=== PATIENT | female | born 1940 | race Caucasian/White ===

== ENCOUNTER 2018-03-23 11:26 | Inpatient (IN) | payer OTHER, MEDICARE ==
[~2018-03-23] VITALS: Ht 154.9 cm; Wt 72.6 kg
[2018-03-23 12:50] LABS: ABSOLUTE BASOPHIL COUNT 0 /CUMM (0.0-0.2); ABSOLUTE EOSINOPHIL COUNT 0 /CUMM (0.0-0.7); ABSOLUTE GRANULOCYTE CT 8.8 /CUMM (1.4-6.5); ABSOLUTE LYMPH COUNT 1.3 /CUMM (1.2-3.4); ABSOLUTE MONOCYTE COUNT 0.5 /CUMM (0.10-0.60); BASOPHIL % 0.1 % (0.0-2.0); EOSINOPHIL % 0.3 % (0-5); GRANULOCYTE % 82.9 % (42.2-75.2); HEMATOCRIT 40.8 % (37-47); MEAN CORPUSCULAR HGB 22.9 PG (27.0-31.0); MEAN CORPUSCULAR HGB CONC 32.2 G/DL (33.0-37.0); MEAN CORPUSCULAR VOLUME 71.1 FL (81.0-99.0); MEAN PLATELET VOLUME 9.6 FL (7.4-10.4); PLATELET COUNT 303 /CUMM (130-400); RBC DISTRIBUTION WIDTH 15.1 % (11.5-14.5); RED BLOOD CELL CT 5.74 /CUMM (4.20-5.40); WHITE BLOOD CELL COUNT 10.6 /CUMM (4.8-10.8)
[2018-03-23] MEDS ORDERED: AMLODIPINE BESYL5 M1 PO (13:18)
[2018-03-23] MEDS ORDERED: ALPRAZOLAM0.5 M4 PO (13:18)
[2018-03-23] MEDS ORDERED: AMOXICILLIN500 M3 PO (13:19)
[2018-03-23] MEDS ORDERED: ATORVASTATIN CA10 M1 PO (13:19)
[2018-03-23] MEDS ORDERED: ASPIRIN EC81 M1 PO (13:20)
[2018-03-23] MEDS ORDERED: PROBIOTIC1 EACH PO (13:20)
[2018-03-23] MEDS ORDERED: CALCIUM600 M3 PO (13:21)
[2018-03-23] MEDS ORDERED: VITAMIN D2000 UNIT PO (13:21)
[2018-03-23] MEDS ORDERED: FOLIC ACID20 MG PO (13:22)
[2018-03-23] MEDS ORDERED: ESTRACE42.5 GM VG (13:22)
[2018-03-23] MEDS ORDERED: LEVOTHYROXINE50 MCG PO (13:23)
[2018-03-23] MEDS ORDERED: GLUCOSAMINE &1 EAC1 PO (13:23)
[2018-03-23] MEDS ORDERED: CLARITIN10 M1 PO (13:23)
[2018-03-23] MEDS ORDERED: MAGNESIUM400 M1 PO (13:23)
[2018-03-23] MEDS ORDERED: METOPROLOL SUC200 M2 PO (13:25)
[2018-03-23] MEDS ORDERED: MULTIVITAMINS1 EAC9 PO (13:25)
[2018-03-23] MEDS ORDERED: BENICAR40 M1 PO (13:26)
[2018-03-23] MEDS ORDERED: MACRODANTIN100 M1 PO (13:26)
[2018-03-23] MEDS ORDERED: TRAMADOL HCL50 M1 PO (13:27)
[2018-03-23] MEDS ORDERED: CVS FISH OIL 11 EAC1 PO (13:27)
[2018-03-23] MEDS ORDERED: OMEPRAZOLE20 M2 PO (13:27)
[2018-03-23] MEDS ORDERED: ESTRADIOL1 EAC8 TOP (13:28)
--- NOTE | 2018-03-23 14:34 | History & Physical ---
Maryanne Solomon 03/23/18 1433: General Information and HPI MD Statement: I have seen and personally examined SEBASTIÁN KENDRICK and documented this H&P. The patient is a 77 year old F who presented with a patient stated chief complaint of [UTI]. Source of Information: patient, Daughter Keya who was on the phone, and daughter Sebastián who was present in room Exam Limitations: no limitations History of Present Illness: Patient is a 69-year-old female with a past medical history significant for recurrent UTIs, hypertension, hyperlipidemia, hypothyroidism, GERD. Patient is presenting with with pain upon urinating, burning sensation while urinating, lower abdominal pain. Patient has been seen at [facility] on multiple occasions for recurrent UTIs. Patient's symptoms began on March 17 which she went through urgent care she was diagnosed with UTI, patient was started on Bactrim for a 5 day course, which the patient completed. Culture results from March 20 were positive for Pseudomonas, at that time patient was contacted by urgent care and patient stated she was feeling better and did not follow-up for change of medications. After initial improvement of symptoms by March 21, patient began to experience worsening of her symptoms today around 3 AM. Patient had cystoscopy with urologist (Dr. Angel Cast) in February, which showed patient had a thin bladder. Patient was referred to OB adjuster and inspector by the urologist and was started on estradiol patch. Patient has previously been on prophylactic medication for UTIs by urologist, but has had UTI while on prophylactic medication. Allergies/Medications Allergies: Coded Allergies: ciprofloxacin (From CIPRO) (MYALGIAS 03/23/18) cortisone (RASH 03/23/18) hydrocodone (ALMOST FAINTED, GI UPSET 03/23/18) methylprednisolone (HIVES 03/23/18) Home Med list Alprazolam 0.5 MG TABLET 1 TAB PO QPM PRN ANXIETY (Reported) Amlodipine Besylate 5 MG TABLET 1 TAB PO DAILY BP (Reported) Amoxicillin 500 MG TABLET 4 CAP PO AD 1 HOUR PRIOR TO DENTAL APPT (Reported) Aspirin (Ecotrin*) 81 MG TABLET.DR 1 TAB PO DAILY HEART/BLOOD (Reported) Atorvastatin Calcium 10 MG TABLET 1 TAB PO DAILY CHOLESTEROL (Reported) Calcium (Elemental-Fr Calcarb) (Calcium) 600 MG CALCIUM (1,500 MG) TABLET 1 TAB PO BID SUPPLEMENT (Reported) Cholecalciferol (Vitamin D3) (Vitamin D) 2,000 UNIT CAPSULE 1 CAP PO DAILY SUPPLEMENT (Reported) Estradiol (Estrace) 0.01 % CREAM.APPL 2 GM VG MONFRI HRT (Reported) Estradiol 0.025 MG/24 HOUR PATCH.TDWK 1 PATCH TOP QWED HRT (Reported) Folic Acid 20 MG CAPSULE 2 CAP PO DAILY SUPPLEMENT (Reported) Gluc 2KCL/Chondr/Sarabjit Hy/Hy AC (Glucosamine & Chondroitin Cap) (Unknown Strength ) CAPSULE (Unknown Dose) PO DAILY SUPPLEMENT (Reported) Lactobacillus Acidophilus (Probiotic) (Unknown Strength) CAPSULE (Unknown Dose ) PO DAILY PROBIOTIC (Reported) Levothyroxine Sodium 50 MCG TABLET 1 TAB PO DAILY THYROID (Reported) Loratadine (Claritin) 10 MG TABLET 1 TAB PO DAILY ALLERGIES (Reported) Magnesium Oxide (Magnesium) 400 MG CAPSULE 1 CAP PO DAILY SUPPLEMENT ( Reported) Metoprolol Succinate 200 MG TAB.ER.24H 1 TAB PO DAILY HEART/BP (Reported) Multiple Vitamin (Multivitamins) 1 EACH TABLET 1 TAB PO DAILY SUPPLEMENT ( Reported) Nitrofurantoin Macrocrystal (Macrodantin) 100 MG CAPSULE 1 CAP PO AD PRN ABX (Reported) Olmesartan Medoxomil (Benicar) 40 MG TABLET 1 TAB PO DAILY BP (Reported) [place]-3 Fatty Acids/Fish Oil (Cvs Fish Oil 1,200 MG Softgel) 360 MG-1,200 MG CAPSULE 1 CAP PO BID SUPPLEMENT (Reported) Omeprazole 20 MG CAPSULE.DR 1 CAP PO DAILY GI (Reported) Tramadol HCl 50 MG TABLET 1 TAB PO Q6P PRN PAIN (Reported) Compliance With Home Meds: GOOD Past History Travel History Traveled to [place] past 21 day No Medical History Cardiovascular: hypertension, hyperlipidemia Gastrointestinal: GERD Endocrine: hypothyroidism Surgical History Surgical History: cystoscopy February 2018 Lithotripsy in 1990s Past Family/Social History Psychosocial History Where do you live? Home Who Do You Live With? spouse (Daughter) Primary Language: Malay ETOH Use: denies use Illicit Drug Use: denies illicit drug use Review of Systems Review of Systems Constitutional: Denies: chills, diaphoresis, fever. Cardiovascular: Denies: chest pain, palpitations. Respiratory: Denies: cough, hemoptysis, short of breath. GI: Reports: abdominal pain. Denies: constipation, diarrhea. Genitourinary: Reports: dysuria, frequency, hesitation, pain. Exam & Diagnostic Data Last 24 Hrs of Vital Signs/I&O Vital Signs Date Time Temp Pulse Resp B/P B/P Pulse O2 O2 Flow FiO2 Mean Ox Delivery Rate 03/24 1357 98.6 66 20 131/64 98 Room Air 03/24 0759 79 139/67 03/24 0759 79 139/67 / 0636 97.7 79 20 139/67 98 Room Air 03/23 2140 98.2 71 18 130/80 98 03/23 1629 98.2 76 18 138/70 98 Room Air Intake & Output 03/24 1600 03/24 0800 03/24 0000 Intake Total 850 160 720 Output Total 450 200 Balance 400 -40 720 Intake, IV 40 Intake, Oral 850 120 720 Number 0 Bowel Movements Output, Urine 450 200 Patient 160 lb Weight Physical Exam General Appearance Alert, Oriented X3, Cooperative Skin No Rashes HEENT Atraumatic, EOMI Neck Supple, No LAD Cardiovascular Regular Rate, Normal S1, Normal S2 Lungs Clear to Auscultation, Normal Air Movement Abdomen Suprapubic tenderness to palpation Extremities No Cyanosis, No Edema, Normal Pulses Assessment/Plan Assessment: Patient is a 77-year-old female with past medical history significant for recurrent UTIs, hypertension, hyperlipidemia, GERD, hypothyroidism. Patient is presenting with onset of symptoms around 3 AM, she she is experiencing suprapubic pain, urinary dysuria and urgency. Urinary culture performed at outside clinic on March 20 positive for Pseudomonas. Problem List: 1. UTI 2. Hypertension 3. Hyperlipidemia 4. Hypothyroidism 5. GERD #Urinary tract infection Culture outside clinic positive for Pseudomonas. Culture in-house today positive for gram-negative rods and enterococcus. Afebrile, normal white blood cell count. Plan- -Start ceftazidime 1000 mg -Consult urology, consult ID #Hypertension plan: Continue Metoprolol 200mg Losartan 50mg Amlodipine 5mg #Hyperlipidemia plan: Continue Lipitor #Hypothyroidism plan: Continue Synthroid 0.05mg #GERD plan: Continue Omeprazole 20mg DVT prophylaxis: Heparin Diet: regular Code: Full code discussed with patient on 03/23/2018, daughter Sebastián present in room As Ranked By This Provider Problem List: 1. UTI (urinary tract infection) Core Measures/Misc (06/03) Acute Coronary Syndrome ACS Diagnosis: No Congestive Heart Failure Congestive Heart Failure Diagnosis No Cerebrovascular Accident CVA/TIA Diagnosis: No VTE (View Protocol) VTE Risk Factors Age>40 No Mechanical VTE Prophylaxis d/t Early Ambulation No VTE Pharm Prophylaxis d/t NA PharmProphylax ordered Comment: Heparin Sepsis (View protocol) Sepsis Present: No If YES complete Sepsis Event Note If YES complete Sepsis Event Note Astrid Zuniga 03/23/18 1526: Core Measures/Misc (06/03) Sepsis (View protocol) If YES complete Sepsis Event Note If YES complete Sepsis Event Note Resident Review Statement Other Findings: Patient is 77-year-old female with past medical history of hypertension, hyperlipidemia, GERD, recurrent UTI, hypothyroidism came in with a chief complaint of burning micturition. Patient states that her symptoms started on , on 03/17, she went to urgent care and after getting the urine culture, she was sent home on Bactrim. On 03/20, she completed her course of Bactrim however felt that her burning micturition, urgency, hesitancy, and lower abdominal pain was getting worse. This morning when patient got up, she said that her burning micturition was worse accompanied by pressure-like abdominal pain, /, nonradiating. Patient states that she has had a history of right-sided kidney stone around 20 years ago, which were treated with lithotripsy, repeat imaging done last July, did not show any stones. 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 Spoke with patient's daughter, Gillian, who is also the POA, she states that patient was once put on prophylactic antibiotics for 30 days, however it was discontinued when she developed UTI while being on antibiotics. Labs and vitals as above Assessment and plan Will monitor the patient on general medicine floor, she was given ceftazidime and gentamicin in ER, will continue her on ceftazidime. The urine culture report from urgent care clinic from 03/20/18, shows that she was growing Pseudomonas, however she is allergic to ciprofloxacin, so she would need IV antibiotics. Will follow-up urine culture, blood culture. We will continue her on ceftaz, monitor CBC tomorrow, vitals every shift, will continue the rest of her home meds, DVT prophylaxis SC heparin, patient is full code Sharita CRAIG,Suzy 03/23/18 1704: Core Measures/Misc (06/03) Sepsis (View protocol) If YES complete Sepsis Event Note If YES complete Sepsis Event Note Attending MD Review Statement Attending Statement Attending MD Statement: examined this patient, discuss w/resident/PA/HUNTING SALES ASSOCIATE, agreed w/resident/PA/HUNTING SALES ASSOCIATE, reviewed EMR data (avail) Attending Assessment/Plan: 77F PMH hypertension, hyperlipidemia, GERD, recurrent UTI, hypothyroidism, placed on Estrogen patch for thin bladder epithelium, presenting with dysuria, burning, and urinary frequency consistent with prior UTI's. Was seen at urgent care and placed on empiric Bactrim, culture returned brenner-sensitive Pseudomonas and patient was advised to come to ER, which she did. No systemic symptoms, denying fever, chills, body aches, loss of appetite, chest pain, SOB, flank pain. Had been on prophylactic antibiotics in the past with no success. No evidence of pyelonephritis or abscess. Patient is allergic to quinolones. 1. Pseudomonal UTI 2. Failure of outpatient treatment Plan - Admit to general medicine - Ceftazidime - Continue home medications - ID and urology consults on Sunday - DVT PPx
--- NOTE | 2018-03-23 15:11 | ED GI/GU/ABDOMINAL COMPLAINT ---
History of Present Illness General Chief Complaint: General Adult Stated Complaint: UTI/PYELONEPHRITIS Source: patient, family, old records Exam Limitations: no limitations Vital Signs & Intake/Output Vital Signs & Intake/Output Vital Signs Date Time Temp Pulse Resp B/P B/P Pulse O2 O2 Flow FiO2 Mean Ox Delivery Rate 03/23 1348 98.2 79 20 181/86 98 Room Air 03/23 1133 97.3 88 20 171/88 97 Room Air Allergies Coded Allergies: ciprofloxacin (From CIPRO) (MYALGIAS 03/23/18) cortisone (RASH 03/23/18) hydrocodone (ALMOST FAINTED, GI UPSET 03/23/18) methylprednisolone (HIVES 03/23/18) Reconcile Medications Alprazolam 0.5 MG TABLET 1 TAB PO QPM PRN ANXIETY (Reported) Amlodipine Besylate 5 MG TABLET 1 TAB PO DAILY BP (Reported) Amoxicillin 500 MG TABLET 4 CAP PO AD 1 HOUR PRIOR TO DENTAL APPT (Reported) Aspirin (Ecotrin*) 81 MG TABLET.DR 1 TAB PO DAILY HEART/BLOOD (Reported) Atorvastatin Calcium 10 MG TABLET 1 TAB PO DAILY CHOLESTEROL (Reported) Calcium (Elemental-Fr Calcarb) (Calcium) 600 MG CALCIUM (1,500 MG) TABLET 1 TAB PO BID SUPPLEMENT (Reported) Cholecalciferol (Vitamin D3) (Vitamin D) 2,000 UNIT CAPSULE 1 CAP PO DAILY SUPPLEMENT (Reported) Estradiol (Estrace) 0.01 % CREAM.APPL 2 GM VG MONFRI HRT (Reported) Estradiol 0.025 MG/24 HOUR PATCH.TDWK 1 PATCH TOP QWED HRT (Reported) Folic Acid 20 MG CAPSULE 2 CAP PO DAILY SUPPLEMENT (Reported) Gluc 2KCL/Chondr/Sarabjit Hy/Hy AC (Glucosamine & Chondroitin Cap) (Unknown Strength ) CAPSULE (Unknown Dose) PO DAILY SUPPLEMENT (Reported) Lactobacillus Acidophilus (Probiotic) (Unknown Strength) CAPSULE (Unknown Dose ) PO DAILY PROBIOTIC (Reported) Levothyroxine Sodium 50 MCG TABLET 1 TAB PO DAILY THYROID (Reported) Loratadine (Claritin) 10 MG TABLET 1 TAB PO DAILY ALLERGIES (Reported) Magnesium Oxide (Magnesium) 400 MG CAPSULE 1 CAP PO DAILY SUPPLEMENT ( Reported) Metoprolol Succinate 200 MG TAB.ER.24H 1 TAB PO DAILY HEART/BP (Reported) Multiple Vitamin (Multivitamins) 1 EACH TABLET 1 TAB PO DAILY SUPPLEMENT ( Reported) Nitrofurantoin Macrocrystal (Macrodantin) 100 MG CAPSULE 1 CAP PO AD PRN ABX (Reported) Olmesartan Medoxomil (Benicar) 40 MG TABLET 1 TAB PO DAILY BP (Reported) [place]-3 Fatty Acids/Fish Oil ([facility]vs Fish Oil 1,200 MG Softgel) 360 MG-1,200 MG CAPSULE 1 CAP PO BID SUPPLEMENT (Reported) Omeprazole 20 MG CAPSULE.DR 1 CAP PO DAILY GI (Reported) Tramadol HCl 50 MG TABLET 1 TAB PO Q6P PRN PAIN (Reported) Triage Note: [facility] FOR IV ANTIBIOTICS FOR BLADDER INFECTION. PT WAS TAKING SULFA FOR INFECTION Triage Nurses Notes Reviewed? yes LMP (ages 10-50): post menopausal ? n Is pt currently ? No Onset: Last week Duration: better, constant, continues in ED Timing: recent history Quality/Severity: burning, severe Location: suprapubic Radiation: no radiation Activities at Onset: rest Prior Abdominal Problems: similar symptoms Past Sexual History: Unobtainable at this time Modifying Factors: Worsens With: urinating. Associated Symptoms: dysuria, urinary frequency HPI: 4 days prior to admission patient complained of urinary frequency and hesitation and burning with urination. She was seen and started on Bactrim. Urine culture was positive for 50 100,000 colony-forming units of pseudomonas aeruginosa. Urinary frequency slightly improved. She denies fever chills nausea vomiting diarrhea chest pain cough shortness breath headache rash bleeding. Past History Travel History Traveled to [place] past 21 day No Medical History Any Pertinent Medical History? see below for history Cardiovascular: hyperlipidemia Gastrointestinal: GERD Endocrine: hypothyroidism Surgical History Surgical History: non-contributory Psychosocial History What is your primary language Bhutanese Tobacco Use: Never used ETOH Use: denies use Illicit Drug Use: denies illicit drug use Family History Hx Contributory? No Review of Systems Review of Systems Constitutional: Reports: no symptoms. EENTM: Reports: no symptoms. Respiratory: Reports: no symptoms. Cardiovascular: Reports: no symptoms. GI: Reports: no symptoms. Genitourinary: Reports: see HPI, dysuria, frequency, hesitation. Musculoskeletal: Reports: no symptoms. Skin: Reports: no symptoms. Neurological/Psychological: Reports: no symptoms. Hematologic/Endocrine: Reports: no symptoms. Immunologic/Allergic: Reports: no symptoms. All Other Systems: Reviewed and Negative Physical Exam Physical Exam General Appearance: well developed/nourished, alert, awake, anxious, mild distress Head: atraumatic, normal appearance Eyes: Bilateral: normal appearance, PERRL, EOMI, normal inspection. Ears, Nose, Throat, Mouth: hearing grossly normal, moist mucous membrane Neck: normal inspection, supple, full range of motion, normal alignment Respiratory: normal breath sounds, chest non-tender, no respiratory distress, quiet respiration, lungs clear Cardiovascular: regular rate/rhythm, normal peripheral pulses, norml femoral pulses equa Peripheral Pulses: 4+ carotid (R), 4+ carotid (L) Gastrointestinal: normal bowel sounds, soft, non-tender, no organomegaly Back: normal inspection, normal range of motion Extremities: normal range of motion, no ligament instability Neurologic/Psych: no motor/sensory deficits, awake, alert, oriented x 3, normal gait, normal mood/affect, rn lab II-XII nml as tested Skin: intact, normal color, warm/dry Core Measures ACS in differential dx? No Sepsis Present: No Sepsis Focused Exam Completed? No Progress Differential Diagnosis: UTI/pyelo Plan of Care: Orders Procedure Date/time Status Regular Diet 03/23 D Active Intake & Output 03/23 1422 Active BLOOD CULTURE 03/23 1421 Active Patient Data 03/23 1409 Active OXYGEN SETUP (GEN) 03/23 1349 Active Saline Lock 03/23 1349 Active Admit to inpatient 03/23 1349 Active Vital Signs 03/23 1349 Active Activity/Ambulation 03/23 1349 Active Code Status 03/23 1349 Active CULTURE,URINE 03/23 1211 Active URINALYSIS 03/23 1211 Complete COMPREHENSIVE METABOLIC PANEL 03/23 1211 Complete CBC WITHOUT DIFFERENTIAL 03/23 1211 Complete Laboratory Tests 03/23/18 1230: Anion Gap 16, Estimated GFR > 60, BUN/Creatinine Ratio 22.9, Glucose 141 H, Calcium 9.8, Total Bilirubin 0.5, AST 39 H, ALT 47, Alkaline Phosphatase 53, Total Protein 8.0, Albumin 4.7, Globulin 3.3, Albumin/Globulin Ratio 1.4, CBC w Diff NO MAN DIFF REQ, RBC 5.74 H, MCV 71.1 L, MCH 22.9 L, MCHC 32.2 L, RDW 15.1 H, MPV 9.6, Gran % 82.9 H, Lymphocytes % 12.0 L, Monocytes % 4.7, Eosinophils % 0.3, Basophils % 0.1, Absolute Granulocytes 8.8 H, Absolute Lymphocytes 1.3, Absolute Monocytes 0.5, Absolute Eosinophils 0, Absolute Basophils 0 03/23/18 1224: Urine Color STRAW, Urine Clarity CLDY H, Urine pH 6.0, Ur Specific [place] 1.010, Urine Protein NEG, Urine Ketones NEG, Urine Nitrite NEG, Urine Bilirubin NEG, Urine Urobilinogen 0.2, Ur Leukocyte Esterase LARGE H, Ur Microscopic SEDIMENT EXAMINED, Urine RBC 1-3, Urine WBC 50-75 H, Ur Epithelial Cells MANY H, Urine Bacteria FEW H, Urine Mucus RARE, Urine Hemoglobin SMALL H, Urine Glucose NEG Microbiology 03/23 1421 BLOOD: Blood Culture - ORD 03/23 1421 BLOOD: Blood Culture - ORD 03/23 1224 URINE ROUT: Urine Culture - RECD Initial ED EKG: none Departure Departure Time of Disposition: 1531 Disposition: HOME OR SELF CARE Condition: Stable Clinical Impression Primary Impression: UTI (urinary tract infection) Secondary Impressions: Pseudomonas aeruginosa infection Referrals: Trey Caballero MD (PCP/Family) Departure Forms: Customer Survey General Discharge Information Admission Note Spoke With: Suzy Sheriff MD Documentation of Exam: Documentation of any treatments & extenuating circumstances including Concerns Regarding Discharge (functional status, medication knowledge or non-compliance, living conditions, etc.) that warrant an admission rather than observation: IV antibiotics follow urine culture medication adjustment urology evaluation continuing care discharge planning
[2018-03-23 16:29] VITALS: BP 138/70
--- NOTE | 2018-03-23 17:08 | Admission Certification ---
Admission Certification Certification Statement - As attending physician, I certify that at the time of - admission, based on clinical presentation, severity of - symptoms, need for further diagnostic testing and - therapeutic interventions, and risk of adverse outcomes - without in-hospital treatment, in my clinical assessment, - this patient requires an acute hospital stay for a minimum - of two nights or longer. I have also considered psychsocial - factors such as support system, advanced age, financial - issues, cognitive issues, and failed out-patient treatments, - past re-admission history, safety of patient, and lack of - compliance as applicable. Specific rationale supporting this admission is: Pseudomonal UTI failing outpatient treatment
[2018-03-23 21:40] VITALS: BP 130/80
[2018-03-24 06:36] VITALS: BP 139/67
[2018-03-24 09:17] LABS: ABSOLUTE BASOPHIL COUNT 0 /CUMM (0.0-0.2); ABSOLUTE EOSINOPHIL COUNT 0.2 /CUMM (0.0-0.7); ABSOLUTE GRANULOCYTE CT 5.2 /CUMM (1.4-6.5); ABSOLUTE LYMPH COUNT 2.2 /CUMM (1.2-3.4); ABSOLUTE MONOCYTE COUNT 0.5 /CUMM (0.10-0.60); BASOPHIL % 0.4 % (0.0-2.0); EOSINOPHIL % 2.5 % (0-5); GRANULOCYTE % 64.1 % (42.2-75.2); HEMATOCRIT 39.8 % (37-47); MEAN CORPUSCULAR HGB 22.8 PG (27.0-31.0); MEAN CORPUSCULAR HGB CONC 31.9 G/DL (33.0-37.0); MEAN CORPUSCULAR VOLUME 71.5 FL (81.0-99.0); MEAN PLATELET VOLUME 9.8 FL (7.4-10.4); PLATELET COUNT 271 /CUMM (130-400); RED BLOOD CELL CT 5.56 /CUMM (4.20-5.40); WHITE BLOOD CELL COUNT 8.1 /CUMM (4.8-10.8)
--- NOTE | 2018-03-24 12:01 | PN- Housestaff ---
SolomonMaryanne 03/24/18 1201: Subjective Follow-up For: UTI Complaints: no complaints Subjective: Patient was seen and examined in sitting chair. Patient surrounded by 2 daughters and son-in-law. Patient reports improved pain upon urination, states she is able to void normally without hesitation or decreased flow. Patient states she was having cramps in the left leg and followed by the right leg. Denies Tingling and numbness, denies fever, night sweats and chills. Review of Systems Constitutional: Denies: chills, diaphoresis, fever. Cardiovascular: Denies: chest pain, palpitations. Respiratory: Denies: cough, short of breath. Gastrointestinal: Denies: abdominal pain, constipation, diarrhea, vomiting. Genitourinary: Denies: discharge, dysuria, frequency. Objective Last 24 Hrs of Vital Signs/I&O Vital Signs Date Time Temp Pulse Resp B/P B/P Pulse O2 O2 Flow FiO2 Mean Ox Delivery Rate 03/24 0759 79 139/67 03/24 0759 79 139/67 03/24 0636 97.7 79 20 139/67 98 Room Air 03/23 2140 98.2 71 18 130/80 98 07/ 1629 98.2 76 18 138/70 98 Room Air 03/23 1537 78 19 181/78 98 Room Air / 1348 98.2 79 20 181/86 98 Room Air Intake & Output 03/24 1600 07/08 0800 07/08 0000 Intake Total 160 720 Output Total 200 Balance -40 720 Intake, IV 40 Intake, Oral 120 720 Number 0 Bowel Movements Output, Urine 200 Patient 160 lb Weight Physical Exam General Appearance: Alert, Oriented X3, Cooperative Skin: No Rashes HEENT: Atraumatic, EOMI, Head tremor Neck: Supple, No LAD Cardiovascular: Regular Rate, Normal S1, Normal S2 Lungs: Clear to Auscultation, Normal Air Movement Abdomen: Normal Bowel Sounds, Soft, Minimal tenderness to palpation at suprapubic area Assessment/Plan Assessment: Patient is a 77-year-old female with past medical history significant for recurrent UTIs, hypertension, hyperlipidemia, GERD, hypothyroidism. Patient is presenting with onset of symptoms around 3 AM, she she is experiencing suprapubic pain, urinary dysuria and urgency. Urinary culture performed at outside clinic on March 20 positive for Pseudomonas. Problem List: 1. UTI 2. Hyperkalemia 3. Hypertension 4. Hyperlipidemia 5. Hypothyroidism 6. GERD #Urinary tract infection Culture outside clinic positive for Pseudomonas. Culture in-house today positive for gram-negative rods and enterococcus. Afebrile, normal white blood cell count. Plan- - Cont. ceftazidime 1000 mg - Start Vancomycin 1000mg IV, pending culture sensitivity - Consult ID - Urology consult placed today #Hyperkalemia Patient was c/o cramps in bilat. lower extremities Plan: -continue to follow K+ -EKG #Hypertension plan: Continue Metoprolol 200mg Losartan 50mg Amlodipine 5mg #Hyperlipidemia plan: Continue Lipitor #Hypothyroidism plan: Continue Synthroid 0.05mg #GERD plan: Continue Omeprazole 20mg DVT prophylaxis: Heparin Diet: regular Code: Full code Problem List: 1. UTI (urinary tract infection) Pain Ratin Pain Location: n/a Pain Goal: Remain pain free Pain Plan: tylenol Tomorrow's Labs & Rationales: cbc, bep Suzy Sheriff MD 03/24/18 1450: Attending MD Review Statement Attending Statement Attending MD Statement: examined this patient, discuss w/resident/PA/POWDER GUARD, agreed w/resident/PA/POWDER GUARD, reviewed EMR data (avail) Attending Assessment/Plan: 77F PMH hypertension, hyperlipidemia, GERD, recurrent UTI, hypothyroidism, placed on Estrogen patch for thin bladder epithelium, presenting with dysuria, burning, and urinary frequency consistent with prior UTI's. Was seen at urgent care and placed on empiric Bactrim, culture returned brenner-sensitive Pseudomonas and patient was advised to come to ER, which she did. No systemic symptoms, denying fever, chills, body aches, loss of appetite, chest pain, SOB, flank pain. Had been on prophylactic antibiotics in the past with no success. No evidence of pyelonephritis or abscess. Patient is allergic to quinolones. Urine growing GNR and Enterococcus 1. Pseudomonal and enterococcal UTI 2. Failure of outpatient treatment Plan - Continue on general medicine - Continue Ceftazidime - Start Vancomycin until culture sensitivities return - Continue home medications - ID and urology consults on Sunday - DVT PPx - Discussed possibility of a PICC and home with IV antibiotics with family. They are willing to do this, and wish for further discussion on Sunday
[2018-03-24 13:57] VITALS: BP 131/64
[2018-03-24 20:58] VITALS: BP 148/83
[2018-03-25 07:01] VITALS: BP 184/89
--- NOTE | 2018-03-25 07:59 | PN- Housestaff ---
See Addendum Subjective Follow-up For: UTI Subjective: Patient seen and examined in chair. Acute events overnight. Afebrile. Patient has no complains of. Patient states she has not experience any pain or burning sensation with urination. In talking patient patient states that in the past her bladder does not completely empty this is been going on for quite some years , that when she urinates her bladder does not feel like it is completely empty, so she tries to relieve herself again she is successful in completely voiding some of the time. Review of Systems Constitutional: Denies: chills, diaphoresis, fever. Cardiovascular: Denies: chest pain. Respiratory: Denies: cough, short of breath. Objective Last 24 Hrs of Vital Signs/I&O Vital Signs Date Time Temp Pulse Resp B/P B/P Pulse O2 O2 Flow FiO2 Mean Ox Delivery Rate 03/25 0701 98.0 28 18 184/89 98 03/24 2058 98.4 66 18 148/83 99 03/24 1357 98.6 66 20 131/64 98 Room Air 03/24 0759 79 139/67 03/24 0759 79 139/67 Intake & Output 03/25 0800 03/25 0000 03/24 1600 Intake Total 230 250 850 Output Total 300 450 Balance -70 250 400 Intake, IV 30 50 Intake, Oral 200 200 850 Output, Urine 300 450 Physical Exam General Appearance: Alert, Oriented X3, Cooperative HEENT: Atraumatic, EOMI Neck: Supple Cardiovascular: Regular Rate, Normal S1, Normal S2 Lungs: Clear to Auscultation, Normal Air Movement Abdomen: Normal Bowel Sounds, Soft, No Tenderness Extremities: No Cyanosis, No Edema, Normal Pulses Assessment/Plan Assessment: Patient is a 77-year-old female with past medical history significant for recurrent UTIs, hypertension, hyperlipidemia, GERD, hypothyroidism. Patient is presenting with onset of symptoms around 3 AM, she she is experiencing suprapubic pain, urinary dysuria and urgency. Urinary culture performed at outside clinic on March 20 positive for Pseudomonas. Problem List: 1. UTI 2. Hypertension 3. Hyperlipidemia 4. Hypothyroidism 5. GERD 6. Hyperkalemia - resolved #Urinary tract infection Culture outside clinic positive for Pseudomonas. Culture in-house today positive for gram-negative rods and enterococcus. Afebrile, normal white blood cell count. Plan- - Bladder scan for post-void residual - Cont. ceftazidime 1000 mg - Start Ampicillin 1000mg - patient has history of Enteroccous sensitive to drug , D/CVancomycin, will reassess after sensitivities and ID input - Urology and ID consulted, awaiting input. #Hyperkalemia Patient was c/o cramps in bilat. lower extremities Plan: -continue to follow K+ -EKG #Hypertension plan: Continue Metoprolol 200mg Losartan 50mg Amlodipine 5mg #Hyperlipidemia plan: Continue Lipitor #Hypothyroidism plan: Continue Synthroid 0.05mg #GERD plan: Continue Omeprazole 20mg DVT PPx: ALPS Diet: Regular Code: Full Code Problem List: 1. UTI (urinary tract infection) Pain Ratin Pain Location: n/a Pain Goal: Remain pain free Pain Plan: n/a Tomorrow's Labs & Rationales: none
--- NOTE | 2018-03-25 14:09 | Cons- Infect Disease ---
General Information and HPI Consulting Request Date of Consult: 03/25/18 Requested By: Jerry Dunham MD Reason for Consult: Recurrent urinary tract infections Source of Information: patient, family History of Present Illness: This is a 77-year-old woman with a history of hypertension, hypothyroidism, GERD and nephrolithiasis, with recurrent urinary tract infections over a number of years, treated in the past with suppressive antibiotics, with a recent cystoscopy revealing a "thin bladder", for which she was begun on an estradiol patch, treated with Bactrim 6 days prior to admission for a recurrent urinary tract infection, with resolution of her symptoms, referred to the emergency room for admission on March 23 because of the recurrence of her symptoms and with the urine culture positive for Pseudomonas. On admission she was afebrile. Laboratory data revealed a white blood cell count of 10.6, BUN/creatinine 16 and 0.7, AST 39. Urinalysis 1-3 RBC/50-75 WBCs. She was given Ceftazidime and Gentamicin in the emergency room. On March 24 her urine culture was found to be positive for gram-positive cocci and gram-negative rods; she was given 1 dose of Vancomycin and continued on Ceftazidime. This morning she was begun on Ampicillin. She has remained afebrile since admission. She notes resolution of her urinary symptoms and offers no complaints at this time. Allergies/Medications Allergies: Coded Allergies: ciprofloxacin (From CIPRO) (MYALGIAS 03/23/18) cortisone (RASH 03/23/18) hydrocodone (ALMOST FAINTED, GI UPSET 03/23/18) methylprednisolone (HIVES 03/23/18) Home Med List: Alprazolam 0.5 MG TABLET 1 TAB PO QPM PRN ANXIETY (Reported) Amlodipine Besylate 5 MG TABLET 1 TAB PO DAILY BP (Reported) Amoxicillin 500 MG TABLET 4 CAP PO AD 1 HOUR PRIOR TO DENTAL APPT (Reported) Aspirin (Ecotrin*) 81 MG TABLET.DR 1 TAB PO DAILY HEART/BLOOD (Reported) Atorvastatin Calcium 10 MG TABLET 1 TAB PO DAILY CHOLESTEROL (Reported) Calcium (Elemental-Fr Calcarb) (Calcium) 600 MG CALCIUM (1,500 MG) TABLET 1 TAB PO BID SUPPLEMENT (Reported) Cholecalciferol (Vitamin D3) (Vitamin D) 2,000 UNIT CAPSULE 1 CAP PO DAILY SUPPLEMENT (Reported) Estradiol (Estrace) 0.01 % CREAM.APPL 2 GM VG MONFRI HRT (Reported) Estradiol 0.025 MG/24 HOUR PATCH.TDWK 1 PATCH TOP QWED HRT (Reported) Folic Acid 20 MG CAPSULE 2 CAP PO DAILY SUPPLEMENT (Reported) Gluc 2KCL/Chondr/Sarabjit Hy/Hy AC (Glucosamine & Chondroitin Cap) (Unknown Strength ) CAPSULE (Unknown Dose) PO DAILY SUPPLEMENT (Reported) Lactobacillus Acidophilus (Probiotic) (Unknown Strength) CAPSULE (Unknown Dose ) PO DAILY PROBIOTIC (Reported) Levothyroxine Sodium 50 MCG TABLET 1 TAB PO DAILY THYROID (Reported) Loratadine (Claritin) 10 MG TABLET 1 TAB PO DAILY ALLERGIES (Reported) Magnesium Oxide (Magnesium) 400 MG CAPSULE 1 CAP PO DAILY SUPPLEMENT ( Reported) Metoprolol Succinate 200 MG TAB.ER.24H 1 TAB PO DAILY HEART/BP (Reported) Multiple Vitamin (Multivitamins) 1 EACH TABLET 1 TAB PO DAILY SUPPLEMENT ( Reported) Nitrofurantoin Macrocrystal (Macrodantin) 100 MG CAPSULE 1 CAP PO AD PRN ABX (Reported) Olmesartan Medoxomil (Benicar) 40 MG TABLET 1 TAB PO DAILY BP (Reported) [place]-3 Fatty Acids/Fish Oil ([facility] Fish Oil 1,200 MG Softgel) 360 MG-1,200 MG CAPSULE 1 CAP PO BID SUPPLEMENT (Reported) Omeprazole 20 MG CAPSULE.DR 1 CAP PO DAILY GI (Reported) Tramadol HCl 50 MG TABLET 1 TAB PO Q6P PRN PAIN (Reported) Past History Travel History Traveled to [place] past 21 day No Medical History Blood Transfusion Hx: No Neurological: NONE EENT: NONE Cardiovascular: hypertension, hyperlipidemia Respiratory: NONE Gastrointestinal: GERD Hepatic: NONE Renal: nephrolithiasis, recurrent UTI's Musculoskeletal: NONE Psychiatric: NONE Endocrine: hypothyroidism Blood Disorders: NONE Cancer(s): NONE 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 Home Who Do You Live With? spouse (Daughter) Services at Home: None Primary Language: Libyan Smoking Status: Never Smoked ETOH Use: denies use Illicit Drug Use: denies illicit drug use Review of Systems Review of Systems Constitutional: Denies: chills, fever. All Other Systems: Reviewed and Negative Exam & Diagnostic Data Last 24 Hrs of Vital Signs/I&O Vital Signs Date Time Temp Pulse Resp B/P B/P Pulse O2 O2 Flow FiO2 Mean Ox Delivery Rate 03/25 802 184/89 03/25 0802 184/89 03/25 0701 98.0 28 18 184/89 98 03/24 2058 98.4 66 18 148/83 99 Intake & Output 03/25 1600 03/25 0800 03/25 0000 Intake Total 230 250 Output Total 300 Balance -70 250 Intake, IV 30 50 Intake, Oral 200 200 Output, Urine 300 Physical Exam Other Physical Findings: She is awake and alert in no acute distress. She is afebrile. Skin reveals no rash. HEENT exam is negative. Neck is supple with no adenopathy. Lungs are clear. Heart regular rhythm with no murmur. Abdomen is soft, nontender with positive bowel sounds. Back no CVA tenderness. Extremities no cyanosis, clubbing or edema. Neuro is without focality. Last 24 Hours of Lab Results: Laboratory Tests 03/24 825 Chemistry Sodium (137 - 145 mmol/L) 138 Potassium (3.5 - 5.1 mmol/L) 4.3 Chloride (98 - 107 mmol/L) 103 Carbon Dioxide (22 - 30 mmol/L) 23 Anion Gap (5 - 16) 12 BUN (7 - 17 mg/dL) 15 Creatinine (0.5 - 1.0 mg/dL) 0.6 Estimated GFR (>60 ml/min) > 60 BUN/Creatinine Ratio (7 - 25 %) 25.0 Hematology CBC w Diff NO MAN DIFF REQ WBC (4.8 - 10.8 /CUMM) 8.1 RBC (4.20 - 5.40 /CUMM) 5.56 H Hgb (12.0 - 16.0 G/DL) 12.7 Hct (37 - 47 %) 39.8 MCV (81.0 - 99.0 FL) 71.5 L MCH (27.0 - 31.0 PG) 22.8 L MCHC (33.0 - 37.0 G/DL) 31.9 L RDW (11.5 - 14.5 %) 15.0 H Plt Count (130 - 400 /CUMM) 271 MPV (7.4 - 10.4 FL) 9.8 Gran % (42.2 - 75.2 %) 64.1 Lymphocytes % (20.5 - 51.1 %) 27.1 Monocytes % (1.7 - 9.3 %) 5.9 Eosinophils % (0 - 5 %) 2.5 Basophils % (0.0 - 2.0 %) 0.4 Absolute Granulocytes (1.4 - 6.5 /CUMM) 5.2 Absolute Lymphocytes (1.2 - 3.4 /CUMM) 2.2 Absolute Monocytes (0.10 - 0.60 /CUMM) 0.5 Absolute Eosinophils (0.0 - 0.7 /CUMM) 0.2 Absolute Basophils (0.0 - 0.2 /CUMM) 0 Last 24 Hours of Antony Results: Blood cultures 2 March 23 negative Urine culture March 23 approximately 50,000 colonies of Pseudomonas resistant to Ciprofloxacin and greater than 100,000 colonies of Enterococci sensitive to Ampicillin Assessment/Plan Assessment/Plan Impression: This is a 77-year-old woman with a history of nephrolithiasis, with recurrent urinary tract infections over a number of years, most recently 1 week prior to admission when she was treated with Bactrim, with resolution of her symptoms, admitted on March 23 with recurrent symptoms and with the report of a positive urine culture for Pseudomonas, found to be afebrile with a normal white count and pyuria and with her urine culture found to be positive for Pseudomonas and Enterococcus. She appears to have a symptomatic lower urinary tract infection, which appears to be responding to antibiotics. The etiology of her recurrent urinary tract infections is unclear. She does have a history of nephrolithiasis and obstruction should be ruled out if she has not had recent imaging. She has been treated in the past with a suppressive course of antibiotics which may be helpful, though this often leads to the emergence of resistance to the antibiotic used. If she has no obstruction then she should only require a 3 day course of antibiotics for her current infection. Suggestion: 1. Urology evaluation 2. CT of the abdomen and pelvis 3. Continue Ampicillin and Ceftazidime pending above Consult Acknowledgment - Thank you for your consult request.
[2018-03-25 14:27] VITALS: BP 173/73
--- NOTE | 2018-03-25 19:50 | CT SCAN REPORT ---
EXAMINATION: CT ABDOMEN AND PELVIS WITHOUT CONTRAST CLINICAL INFORMATION: Recurrent UTI. COMPARISON: CT abdomen and pelvis without the level 2006. TECHNIQUE: Multidetector volumetric imaging was performed from the superior aspect of the liver through the pubic symphysis. Sagittal and coronal reformatted images were obtained on the technologist's workstation. DLP: 318 mGy-cm FINDINGS: LUNG BASES: There is bandlike atelectasis right lower lobe and lingula. The heart size is normal. LIVER, GALLBLADDER, AND BILIARY TREE: The liver is normal in size, shape, and attenuation. No focal hepatic lesion or biliary ductal dilatation is present. The gallbladder is unremarkable with no evidence of radiopaque gallstones, gallbladder wall thickening, or obvious pericholecystic inflammatory changes. PANCREAS: Unremarkable. SPLEEN: Unremarkable. ADRENAL GLANDS: Unremarkable. KIDNEYS AND URETERS: The kidneys are normal in size, shape, and attenuation. No hydronephrosis, hydroureter, or calculi seen. No perinephric stranding. BLADDER: Unremarkable. GASTROINTESTINAL TRACT: There is diffuse sigmoid and rest the colon diverticulosis without diverticulitis or distention. The small bowel loops are normal caliber. No free air or free fluid seen. ABDOMINAL WALL: No significant hernia is appreciated. LYMPH NODES: There is scattered mesenteric lymph nodes best visualized on coronal image 34, series 602 is measured approximately 9 mm and are within normal limits. VASCULAR: There is atherosclerotic calcification of abdominal aorta without aneurysmal dilatation. PELVIC VISCERA: No free air or free fluid seen. No pelvic mass or abnormal lymphadenopathy. OSSEOUS STRUCTURES: There are degenerative disc changes L5-S1 and L2-L3 disc levels with ventral spondylosis. No fracture or lytic process seen. There is a total right hip prosthesis with beam hardening artifact lower pelvis posterior to evaluation. IMPRESSION: Colonic diverticulosis without diverticulitis. No obstruction, free air or free fluid. Mild constipation.
[2018-03-25 22:20] VITALS: BP 180/80
[2018-03-26 06:28] VITALS: BP 160/72
--- NOTE | 2018-03-26 07:25 | PN- Housestaff ---
See Addendum Subjective Follow-up For: UTI Subjective: Patient seen and examined at bedside. Patient has no c/o. 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 States she is experiencing a light headache on ROS. Denies: blurry vision, chest pain, palpitations, SOB, diffculty breathing when lying flat. Review of Systems Constitutional: Denies: chills, diaphoresis, fever. EENTM: Denies: blurred vision. Cardiovascular: Denies: chest pain, palpitations. Respiratory: Denies: cough, short of breath. Genitourinary: Reports: frequency. Denies: dysuria, hematuria, hesitation, pain. Objective Last 24 Hrs of Vital Signs/I&O Vital Signs Date Time Temp Pulse Resp B/P B/P Pulse O2 O2 Flow FiO2 Mean Ox Delivery Rate 03/26 0628 98.2 82 16 160/72 95 Room Air 03/25 2323 72 180/80 03/25 2220 97.5 72 17 180/80 96 Room Air 03/25 1427 98.0 74 20 173/73 98 Room Air 03/25 0802 184/89 03/25 0802 184/89 Intake & Output 03/26 0800 03/26 0000 03/25 1600 Intake Total 330 1920 Output Total Balance 330 1920 Intake, IV 330 120 Intake, Oral 1800 Number 0 0 Bowel Movements Physical Exam General Appearance: Alert, Oriented X3, Cooperative Skin: No Rashes HEENT: Atraumatic, EOMI Cardiovascular: Regular Rate, Normal S1, Normal S2 Lungs: Clear to Auscultation, Normal Air Movement Abdomen: Normal Bowel Sounds, Soft, No Tenderness, No Hepatospenomegaly Extremities: No Cyanosis, No Edema, Normal Pulses Assessment/Plan Assessment: Patient is a 77-year-old female with past medical history significant for recurrent UTIs, hypertension, hyperlipidemia, GERD, hypothyroidism. Patient is presenting with onset of symptoms around 3 AM, she she is experiencing suprapubic pain, urinary dysuria and urgency. Urinary culture performed at outside clinic on March 20 positive for Pseudomonas. Problem List: 1. UTI 2. Hypertension 3. Hyperlipidemia 4. Hypothyroidism 5. GERD 6. Hyperkalemia - resolved #Urinary tract infection Culture outside clinic positive for Pseudomonas. In House cultures positive for Pseudomonas and Enterococcus. Afebrile, normal white blood cell count. Plan- - Cont. ceftazidime 1000 mg, will d/c after recieving afternoon dose, - Continue Ampicillin 1000mg, will d/c tomorrow as per ID recs - Abdomen and [place] CT negative #Hypertension plan: - Continue Metoprolol 200mg - Losartan 50mg #Hyperlipidemia plan: Continue Lipitor #Hypothyroidism plan: Continue Synthroid 0.05mg #GERD plan: Continue Omeprazole 20mg #Hyperkalemia Patient was c/o cramps in bilat. lower extremities Plan: -continue to follow K+ -EKG DVT PPx: ALPS Diet: Regular Code: Full Code Problem List: 1. UTI (urinary tract infection) Pain Ratin Pain Location: n/a Pain Goal: Remain pain free Pain Plan: n/a Tomorrow's Labs & Rationales: none DVT/Prophylaxis: pharmacological
--- NOTE | 2018-03-26 07:42 | Cons- Urology ---
General Information and HPI Consulting Request Date of Consult: 03/26/18 Requested By: Jerry Dunham MD Reason for Consult: UTI: recurrent Source of Information: patient, old records Exam Limitations: no limitations History of Present Illness: Pt well known to me with atrophic vaginitis and frequent UTIs, often asymptomatic: had required 3 months of suppression abx to sterilize urine and recently discontinued. now presents with UTI in ER. Patient is a 69-year-old female with a past medical history significant for recurrent UTIs, hypertension, hyperlipidemia, hypothyroidism, GERD. Patient is presenting with with pain upon urinating, burning sensation while urinating, lower abdominal pain. Patient has been seen at [facility] on multiple occasions for recurrent UTIs. Patient's symptoms began on March 17 which she went through urgent care she was diagnosed with UTI, patient was started on Bactrim for a 5 day course, which the patient completed. Culture results from March 20 were positive for Pseudomonas, at that time patient was contacted by urgent care and patient stated she was feeling better and did not follow-up for change of medications. After initial improvement of symptoms by March 21, patient began to experience worsening of her symptoms today around 3 AM. Patient had cystoscopy with urologist (Dr. Angel Cast) in February, which showed patient had a thin bladder. 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 Patient has previously been on prophylactic medication for UTIs by urologist, but has had UTI while on prophylactic medication. Allergies/Medications Allergies: Coded Allergies: ciprofloxacin (From CIPRO) (MYALGIAS 03/23/18) cortisone (RASH 03/23/18) hydrocodone (ALMOST FAINTED, GI UPSET 03/23/18) methylprednisolone (HIVES 03/23/18) Home Med List: Alprazolam 0.5 MG TABLET 1 TAB PO QPM PRN ANXIETY (Reported) Amlodipine Besylate 5 MG TABLET 1 TAB PO DAILY BP (Reported) Amoxicillin 500 MG TABLET 4 CAP PO AD 1 HOUR PRIOR TO DENTAL APPT (Reported) Aspirin (Ecotrin*) 81 MG TABLET.DR 1 TAB PO DAILY HEART/BLOOD (Reported) Atorvastatin Calcium 10 MG TABLET 1 TAB PO DAILY CHOLESTEROL (Reported) Calcium (Elemental-Fr Calcarb) (Calcium) 600 MG CALCIUM (1,500 MG) TABLET 1 TAB PO BID SUPPLEMENT (Reported) Cholecalciferol (Vitamin D3) (Vitamin D) 2,000 UNIT CAPSULE 1 CAP PO DAILY SUPPLEMENT (Reported) Estradiol (Estrace) 0.01 % CREAM.APPL 2 GM VG MONFRI HRT (Reported) Estradiol 0.025 MG/24 HOUR PATCH.TDWK 1 PATCH TOP QWED HRT (Reported) Folic Acid 20 MG CAPSULE 2 CAP PO DAILY SUPPLEMENT (Reported) Gluc 2KCL/Chondr/Nel Hy/Hy AC (Glucosamine & Chondroitin Cap) (Unknown Strength ) CAPSULE (Unknown Dose) PO DAILY SUPPLEMENT (Reported) Lactobacillus Acidophilus (Probiotic) (Unknown Strength) CAPSULE (Unknown Dose ) PO DAILY PROBIOTIC (Reported) Levothyroxine Sodium 50 MCG TABLET 1 TAB PO DAILY THYROID (Reported) Loratadine (Claritin) 10 MG TABLET 1 TAB PO DAILY ALLERGIES (Reported) Magnesium Oxide (Magnesium) 400 MG CAPSULE 1 CAP PO DAILY SUPPLEMENT ( Reported) Metoprolol Succinate 200 MG TAB.ER.24H 1 TAB PO DAILY HEART/BP (Reported) Multiple Vitamin (Multivitamins) 1 EACH TABLET 1 TAB PO DAILY SUPPLEMENT ( Reported) Nitrofurantoin Macrocrystal (Macrodantin) 100 MG CAPSULE 1 CAP PO AD PRN ABX (Reported) Olmesartan Medoxomil (Benicar) 40 MG TABLET 1 TAB PO DAILY BP (Reported) [place]-3 Fatty Acids/Fish Oil (Cvs Fish Oil 1,200 MG Softgel) 360 MG-1,200 MG CAPSULE 1 CAP PO BID SUPPLEMENT (Reported) Omeprazole 20 MG CAPSULE.DR 1 CAP PO DAILY GI (Reported) Tramadol HCl 50 MG TABLET 1 TAB PO Q6P PRN PAIN (Reported) Current Medications: Current Medications Sig/Fletcher Start time Last Medication Dose Route Stop Time Status Admin Acetaminophen 650 MG .STK-MED ONE 03/25 2231 DC PO 03/25 223 Acetaminophen 650 MG Q8P PRN 03/23 1545 AC 03/25 PO 2232 Alprazolam 0.5 MG QPM PRN 03/23 1545 AC 03/23 PO 03/30 1544 2158 Amlodipine Besylate 10 MG DAILY 03/26 0900 CAN PO Amlodipine Besylate 5 MG ONCE ONE 03/25 2300 DC 03/25 PO 03/25 2301 2323 Amlodipine Besylate 5 MG DAILY 03/23 1536 DC 03/25 PO 0802 Ampicillin 1,000 MG Q6 03/25 1200 AC 03/26 Sodium Chloride 100 ML IV 0537 Ampicillin 1,000 MG Q6H 03/25 0719 DC Sodium Chloride 100 ML IV Aspirin Buffered 81 MG DAILY 03/23 1536 AC 03/25 PO 0802 Atorvastatin Calcium 10 MG DAILY 03/23 1537 AC 03/25 PO 0802 Ceftazidime 1,000 MG Q12H 03/24 0200 AC 03/26 IV 0232 Docusate Sodium 100 MG DAILY NEEDED PRN 03/24 2330 AC 03/25 PO 0108 Heparin Sodium 5,000 UNIT Q8 03/23 2200 AC 03/26 (Porcine) SC 0537 Lactobacillus 1 CAP DAILY 03/24 1815 AC 03/25 Acidophilus PO 0803 Levothyroxine Sodium 0.05 MG DAILY AC 03/23 1538 AC 03/26 PO 0708 Losartan Potassium 50 MG DAILY 03/26 0900 AC PO Metoprolol Succinate 200 MG DAILY 03/24 0900 AC 03/25 PO 0802 Non-Formulary 0 SEE ADMIN CRITERIA 03/23 1545 UNVr Medication ANY Omeprazole 20 MG DAILY 03/23 1540 AC 03/25 PO 0802 Tramadol HCl 50 MG Q6P PRN 03/23 1545 AC PO Past History Medical History Blood Transfusion Hx: No Neurological: NONE EENT: NONE Cardiovascular: hypertension, hyperlipidemia Respiratory: NONE Gastrointestinal: GERD Hepatic: NONE Renal: nephrolithiasis, recurrent UTI's Musculoskeletal: NONE Psychiatric: NONE Endocrine: hypothyroidism Blood Disorders: NONE Cancer(s): NONE TOY PACKER/Reproductive: NONE Surgical History Pertinent Surgical History: hysterectomy, cystoscopy February 2018 Lithotripsy in Psychosocial History Where Do You Live? Home Who Do You Live With? spouse (Daughter) Services at Home: None Primary Language: Lithuanian Smoking Status: Never Smoked ETOH Use: denies use Illicit Drug Use: denies illicit drug use Employment History Employment: Unemployed Retired? yes Review of Systems Review of Systems Constitutional: Reports: malaise, weakness. EENTM: Denies: no symptoms. Cardiovascular: Denies: no symptoms. Respiratory: Denies: no symptoms. GI: Reports: abdominal pain, bloating. Genitourinary: Reports: dysuria. Musculoskeletal: Denies: no symptoms. Skin: Denies: no symptoms. Exam & Diagnostic Data Vital Signs and I&O Vital Signs Date Time Temp Pulse Resp B/P B/P Pulse O2 O2 Flow FiO2 Mean Ox Delivery Rate 03/26 0628 98.2 82 16 160/72 95 Room Air 03/25 2323 72 180/80 03/25 2220 97.5 72 17 180/80 96 Room Air 03/25 1427 98.0 74 20 173/73 98 Room Air 03/25 0802 184/89 03/25 0802 184/89 Intake & Output 03/26 0800 07/10 0000 07/09 1600 / 0800 / 0000 07/08 1600 Intake Total 330 1920 230 250 850 Output Total 300 450 Balance 330 1920 -70 250 400 Intake, IV 330 120 30 50 Intake, Oral 1800 200 200 850 Number 0 0 Bowel Movements Output, Urine 300 450 Physical Exam General Appearance: well developed/nourished, no apparent distress Head: atraumatic Eyes: Bilateral: normal appearance. Neck: normal inspection Respiratory: normal breath sounds Cardiovascular: regular rate/rhythm Gastrointestinal: normal bowel sounds, soft, non-tender Back: no vertebral tenderness Extremities: normal inspection Skin: intact, normal color, warm/dry Imaging Results: PATIENT: SEBASTIÁN KENDRICK PRESENT AGE: 77 PATIENT ACCOUNT NO: [id number] : 39 LOCATION: 2NB ORDERING PHYSICIAN: Maryanne Solomon MD SERVICE DATE: 03/25/18- EXAM TYPE: CAT - CT ABD & PELVIS W/O IV CONTRAS EXAMINATION: CT ABDOMEN AND PELVIS WITHOUT CONTRAST CLINICAL INFORMATION: Recurrent UTI. COMPARISON: CT abdomen and pelvis without the level 2006. TECHNIQUE: Multidetector volumetric imaging was performed from the superior aspect of the liver through the pubic symphysis. Sagittal and coronal reformatted images were obtained on the technologist's workstation. DLP: 318 mGy-cm FINDINGS: LUNG BASES: There is bandlike atelectasis right lower lobe and lingula. The heart size is normal. LIVER, GALLBLADDER, AND BILIARY TREE: The liver is normal in size, shape, and attenuation. No focal hepatic lesion or biliary ductal dilatation is present. The gallbladder is unremarkable with no evidence of radiopaque gallstones, gallbladder wall thickening, or obvious pericholecystic inflammatory changes. PANCREAS: Unremarkable. SPLEEN: Unremarkable. ADRENAL GLANDS: Unremarkable. KIDNEYS AND URETERS: The kidneys are normal in size, shape, and attenuation. No hydronephrosis, hydroureter, or calculi seen. No perinephric stranding. BLADDER: Unremarkable. GASTROINTESTINAL TRACT: There is diffuse sigmoid and rest the colon diverticulosis without diverticulitis or distention. The small bowel loops are normal caliber. No free air or free fluid seen. ABDOMINAL WALL: No significant hernia is appreciated. LYMPH NODES: There is scattered mesenteric lymph nodes best visualized on coronal image 34, series 602 is measured approximately 9 mm and are within normal limits. VASCULAR: There is atherosclerotic calcification of abdominal aorta without aneurysmal dilatation. PELVIC VISCERA: No free air or free fluid seen. No pelvic mass or abnormal lymphadenopathy. OSSEOUS STRUCTURES: There are degenerative disc changes L5-S1 and L2-L3 disc levels with ventral spondylosis. No fracture or lytic process seen. There is a total right hip prosthesis with beam hardening artifact lower pelvis posterior to evaluation. IMPRESSION: Colonic diverticulosis without diverticulitis. No obstruction, free air or free fluid. Mild constipation. DICTATED BY: Ilene CRAIG,Sudarshan DATE/TIME DICTATED:03/25/181939 FILM COATER:BENIGNO DATE/TIME TRANSCRIBED:03/25/181939 CONFIDENTIAL, DO NOT COPY WITHOUT APPROPRIATE AUTHORIZATION. <Electronically signed in Other Vendor System> SIGNED BY: Ielne CRAIG,Sudarshan 03/25/181949 Other Results: Patient : SEBASTIÁN KENDRICK Acct: [id number] DR: Jerry Dunham MD Birthdate: [birth year] Age/Sex: 77/F Unit: [id number] Loc: 2NB 216- [id number] Status : ADM IN SPEC #: [id number] NEL: 03/23/18 STATUS: COMP RECD: 03/23/[address]: Sourav Waller MD SOURCE: URINE ROUT ENTR: 03/23/181212 OTHR DR: Ada CRAIG,Trey Roldan SPDESC: URKedar Aguero DO ( [facility]) ORDERED: URINE CULTURE COMMENT: TRIO Procedure Result > URINE CULTURE Final 03/25/18 Approx. 50,000 colonies per ml of: PSEUDOMONAS AERUGINOSA Greater than 100,000 colonies per ml of: ENTEROCOCCUS P. aerugin Enteroc RX AB RX AB ------ -- ------ -- AMPICILLIN S CEFTAZIDIME S CIPROFLOXACIN R GENTAMICIN S MEROPENEM S NITROFURANTOIN S VANCOMYCIN S 1. PSEUDOMONAS AERUGINOSA RX AB ------ -- CEFTAZIDIME S CIPROFLOXACIN R GENTAMICIN S MEROPENEM S 2. ENTEROCOCCUS RX AB ------ -- AMPICILLIN S NITROFURANTOIN S VANCOMYCIN S Note: Infectious Diseases Society of [place] Guidelines state that asymptomatic bacteriuria is not associated with any increase in morbidity or mortality in most patients and therefore treatment is usually not indicated unless patients are less than five years old, or about to undergo urological procedures. 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 Copies To: Segun CRAIG,Angel Consult Acknowledgment - Thank you for your consult request. Attending MD Review Statement Attending Statement Attending MD Statement: examined this patient, discuss w/resident/PA/WELT TREATER Attending Assessment/Plan: continue estrogen/continue abx per ID.
--- NOTE | 2018-03-26 10:40 | PN- Infect Dx ---
Subjective Subjective: Afebrile without complaints Objective Last 24 Hrs of Vital Signs/I&O Vital Signs Date Time Temp Pulse Resp B/P B/P Pulse O2 O2 Flow FiO2 Mean Ox Delivery Rate 03/26 0628 98.2 82 16 160/72 95 Room Air 03/25 2323 72 180/80 03/25 2220 97.5 72 17 180/80 96 Room Air 03/25 1427 98.0 74 20 173/73 98 Room Air Intake & Output 03/26 1600 03/26 0800 03/26 0000 Intake Total 200 330 Output Total Balance 200 330 Intake, IV 200 330 Number 0 0 Bowel Movements Physical Exam Other Physical Findings: She appears comfortable in no acute distress Lungs are clear Heart regular rhythm with no murmur Abdomen is soft, nontender with positive bowel sounds Back no CVA tenderness Results Last 24 Hours of Lab Results: No labs from today Last 24 Hours of Antony Results: Blood cultures 2 March 23 remain negative Recent Imaging Studies: CT of the abdomen and pelvis March 25 no hydronephrosis, calculi or perinephric stranding Assessment/Plan ID Impression: Stable, with temperatures remaining normal, on Ampicillin Day 2 and Ceftazidime Day 3 of treatment for polymicrobial uncomplicated lower urinary tract infection secondary to Enterococcus and Pseudomonas. The etiology of her recurrent urinary tract infections is felt by Urology to be secondary to atrophic vaginitis. She has been treated with suppressive/prophylactic antibiotics in the past, though it is not clear if this has been effective. Suggestion: 1. Further management with regard to suppressive antibiotics per Urology 2. Discontinue Ceftazidime after this afternoon's dose 3. Continue Ampicillin until the a.m. of March 27
[2018-03-26 14:50] VITALS: BP 134/60
[2018-03-26 20:15] VITALS: BP 180/82
[2018-03-26 23:34] VITALS: BP 130/78
[2018-03-27 06:35] VITALS: BP 164/82
--- NOTE | 2018-03-27 07:02 | PN- Housestaff ---
Subjective Follow-up For: UTI Subjective: Patient seen and examined at the bedside, no acute events overnight. Afebrile. Denies pain with urination and denies hesitations, denies frequency, urgency. Discussed blood pressures were patient patient, patient states she does get nervous, states polo blood pressure is better at home. Denies headaches, blurry vision, chest pain, difficulty breathing while lying down, palpitations, shortness of breath. Review of Systems Constitutional: Denies: chills, diaphoresis, fever. Cardiovascular: Denies: chest pain. Respiratory: Denies: cough, short of breath. Gastrointestinal: Denies: abdominal pain, constipation, diarrhea, changes in stool. Genitourinary: Denies: dysuria, frequency, hematuria, hesitation. Objective Last 24 Hrs of Vital Signs/I&O Vital Signs Date Time Temp Pulse Resp B/P B/P Pulse O2 O2 Flow FiO2 Mean Ox Delivery Rate 03/27 0635 97.5 78 16 164/82 96 03/26 2336 130/78 03/26 2334 130/78 03/26 2015 97.7 69 16 180/82 97 Room Air 03/26 1450 98.0 81 18 134/60 97 Room Air Intake & Output 03/27 0800 03/27 0000 03/26 1600 Intake Total 250 1900 Output Total Balance 250 1900 Intake, IV 220 100 Intake, Oral 30 1800 Number 0 Bowel Movements Physical Exam General Appearance: Alert, Oriented X3, Cooperative Skin: No Rashes HEENT: Atraumatic, EOMI Cardiovascular: Regular Rate, Normal S1, Normal S2 Lungs: Clear to Auscultation, Normal Air Movement Abdomen: Normal Bowel Sounds, Soft, No Tenderness Extremities: No Cyanosis, No Edema, Normal Pulses Assessment/Plan Assessment: Patient is a 77-year-old female with past medical history significant for recurrent UTIs, hypertension, hyperlipidemia, GERD, hypothyroidism. Patient is presenting with onset of symptoms around 3 AM, she she is experiencing suprapubic pain, urinary dysuria and urgency. Urinary culture performed at outside clinic on March 20 positive for Pseudomonas. Problem List: 1. UTI 2. Hypertension 3. Hyperlipidemia 4. Hypothyroidism 5. GERD 6. Hyperkalemia - resolved #Urinary tract infection Culture outside clinic positive for Pseudomonas. In House cultures positive for Pseudomonas and Enterococcus. Afebrile, normal white blood cell count. Plan- - Completed 3 day course of IV Ceftazidime 1000mg and Ampicillin 1000mg - Abdomen and [place] CT negative #Hypertension plan: - Continue Metoprolol 200mg - Losartan 50mg #Hyperlipidemia plan: Continue Lipitor #Hypothyroidism plan: Continue Synthroid 0.05mg #GERD plan: Continue Omeprazole 20mg #Hyperkalemia Patient was c/o cramps in bilat. lower extremities Plan: -continue to follow K+ -EKG DVT PPx: ALPS Diet: Regular Code: Full Code Will discharge patient today. To follow up with [facility] and uro-nurse private duty. specialist. D/c with estrace cream 1gm Qpm itravaginally M-F Problem List: 1. UTI (urinary tract infection) Pain Ratin Pain Location: n/a Pain Goal: Remain pain free Pain Plan: n/a Tomorrow's Labs & Rationales: none
--- NOTE | 2018-03-27 07:34 | Patient Discharge Instructions ---
Discharge Instructions General Discharge Information You were seen/treated for: UTI Watch for these problems: Fever, chest pain, shortness of breath Special Instructions: Please take all medications as directed. Please follow-up with primary care and gynecology. Diet Continue normal diet: Yes Activity Full Activity/No Limits: Yes Acute Coronary Syndrome Inclusion Criteria At DC or during hospital stay patient has or had the following: ACS DIAGNOSIS No Discharge Core Measures Meds if any: Prescribed or Continued at Discharge Meds if any: NOT Prescribed or Continued at Discharge Congestive Heart Failure Inclusion Criteria At DC or during hospital stay patient has or had the following: CHF DIAGNOSIS No Discharge Core Measures Meds if any: Prescribed or Continued at Discharge Meds if any: NOT Prescribed or Continued at Discharge Cerebrovascular accident Inclusion Criteria At DC or during hospital stay patient has or had the following: CVA/TIA Diagnosis No Discharge Core Measures Meds if any: Prescribed or Continued at Discharge Meds if any: NOT Prescribed or Continued at Discharge Venous thromboembolism Inclusion Criteria VTE Diagnosis No VTE Type NONE VTE Confirmed by (Test) NONE Discharge Core Measures - Per Current guidelines, there needs to be overlap - treatment for the first 5 days of Warfarin therapy. - If discharged on Warfarin prior to 5 days of - overlap therapy, the patient will need to be - assessed for post discharge needs including - *Post discharge parental anticoagulation - *Warfarin and/or parental anticoagulation education - *Follow up date to check INR post discharge At least 5 days overlap therapy as Inpatient No Meds if any: Prescribed or Continued at Discharge Note: Overlap Therapy is Warfarin and Anticoagulant Meds if any: NOT Prescribed or Continued at Discharge
[2018-03-27 08:39] VITALS: BP 164/82
--- NOTE | 2018-03-27 14:27 | PN- Infect Dx ---
Subjective Subjective: Afebrile without complaints. Objective Last 24 Hrs of Vital Signs/I&O Vital Signs Date Time Temp Pulse Resp B/P B/P Pulse O2 O2 Flow FiO2 Mean Ox Delivery Rate 03/27 0839 78 164/82 03/27 0838 78 164/82 03/27 0635 97.5 78 16 164/82 96 03/26 2336 130/78 03/26 2334 130/78 03/26 2015 97.7 69 16 180/82 97 Room Air 03/26 1450 98.0 81 18 134/60 97 Room Air Intake & Output 03/27 1600 03/27 0800 03/27 0000 Intake Total 250 Output Total Balance 250 Intake, IV 220 Intake, Oral 30 Physical Exam Other Physical Findings: She appears comfortable in no acute distress Back no CVA tenderness Results Last 24 Hours of Lab Results: No recent labs Last 24 Hours of Antony Results: Blood cultures 2 March 23 remain negative Assessment/Plan ID Impression: Stable, with temperatures remaining normal, on Ampicillin Day 3 and status post 3 days of Ceftazidime for a polymicrobial uncomplicated lower urinary tract infection secondary to Enterococcus and Pseudomonas. Her recurrent urinary tract infections are felt by Urology to be secondary to atrophic vaginitis, and Urology recommendations including increasing the frequency of the Estrace cream and referral to a uro-bread room hand are noted. She has been treated with suppressive/prophylactic antibiotics in the past, though it is not clear if this has been effective, and would defer further management with regard to this to Urology. Suggestion: 1. Discontinue Ampicillin and follow off antibiotics 2. Further management with regard to suppressive antibiotics per Urology
== END 2018-03-27 12:34 | DRG 690 ==
LOC: DELPENDDIS → ERH 11:26 → ERHI 13:49 → 2NB 13:49 → ENRESERV 14:35 → ENTRNSPT 15:35 → EDTRNSPTSTS 15:40 → EDTRNSPT 15:40 → 2NB 15:49 → CMPTRNSPT 15:59 → ENPENDDIS 03-24 12:15 → 2NB 03-25 08:02 → ENPENDDIS 03-27 10:53 → 2NB 03-27 12:34
PROVIDERS: Emergency Medicine; Internal Medicine
DX: N39.0 Urinary tract infection, site not specified (principal); B95.2 Enterococcus as the cause of diseases classified elsewhere; B96.5 Pseudomonas (aeruginosa) (mallei) (pseudomallei) as the cause of diseases classified elsewhere; E03.9 Hypothyroidism, unspecified; E87.5 Hyperkalemia; E78.5 Hyperlipidemia, unspecified; I10 Essential (primary) hypertension; K21.9 Gastro-esophageal reflux disease without esophagitis; Z88.1 Allergy status to other antibiotic agents; Z88.5 Allergy status to narcotic agent; Z88.8 Allergy status to other drugs, medicaments and biological substances; Z90.710 Acquired absence of both cervix and uterus
CPT/HCPCS: 2NBSP; 36592; 74176; 81001; 82436; 87040; 87086; 87147; 93005; 93010; 96365; J0290; J0713; J1580; J1644; J3370; J7040; J7508

== ENCOUNTER 2018-04-07 15:23 | Emergency (ER) | payer OTHER, MEDICARE ==
[~2018-04-07] VITALS: Ht 154.9 cm; Wt 74.8 kg
[~2018-04-07 15:23] MED LIST: ALPRAZOLAM0.5 M4 PO; AMLODIPINE BESYL5 M1 PO; AMOXICILLIN500 M3 PO; ASPIRIN EC81 M1 PO; ATORVASTATIN CA10 M1 PO; BENICAR40 M1 PO; CALCIUM600 M3 PO; CLARITIN10 M1 PO; CVS FISH OIL 11 EAC1 PO; ESTRACE42.5 GM VG; ESTRADIOL1 EAC8 TOP; FOLIC ACID20 MG PO; GLUCOSAMINE &1 EAC1 PO; LEVOTHYROXINE50 MCG PO; MACRODANTIN100 M1 PO; MAGNESIUM400 M1 PO; METOPROLOL SUC200 M2 PO; MULTIVITAMINS1 EAC9 PO; OMEPRAZOLE20 M2 PO; PROBIOTIC1 EACH PO; TRAMADOL HCL50 M1 PO; VITAMIN D2000 UNIT PO
[2018-04-07 16:14] LABS: ABSOLUTE BASOPHIL COUNT 0 /CUMM (0.0-0.2); ABSOLUTE EOSINOPHIL COUNT 0 /CUMM (0.0-0.7); ABSOLUTE GRANULOCYTE CT 6.7 /CUMM (1.4-6.5); ABSOLUTE LYMPH COUNT 1.5 /CUMM (1.2-3.4); ABSOLUTE MONOCYTE COUNT 0.4 /CUMM (0.10-0.60); BASOPHIL % 0.1 % (0.0-2.0); EOSINOPHIL % 0.3 % (0-5); GRANULOCYTE % 77.6 % (42.2-75.2); HEMATOCRIT 40.5 % (37-47); MEAN CORPUSCULAR HGB 22.9 PG (27.0-31.0); MEAN CORPUSCULAR HGB CONC 32.3 G/DL (33.0-37.0); MEAN CORPUSCULAR VOLUME 70.8 FL (81.0-99.0); MEAN PLATELET VOLUME 9.1 FL (7.4-10.4); PLATELET COUNT 274 /CUMM (130-400); RBC DISTRIBUTION WIDTH 15.8 % (11.5-14.5); RED BLOOD CELL CT 5.71 /CUMM (4.20-5.40); WHITE BLOOD CELL COUNT 8.7 /CUMM (4.8-10.8)
--- NOTE | 2018-04-07 16:19 | ED GI/GU/ABDOMINAL COMPLAINT ---
History of Present Illness General Chief Complaint: Female Urogenital Problems Stated Complaint: UTI SYMPTOMS,PAIN/BURNING IN VAGINAL AREA Source: patient, old records Exam Limitations: no limitations Vital Signs & Intake/Output Vital Signs & Intake/Output Vital Signs Date Time Temp Pulse Resp B/P B/P Pulse O2 O2 Flow FiO2 Mean Ox Delivery Rate 04/07 1710 90 140/82 04/07 1540 Room Air 04/07 1529 98.1 94 18 183/81 97 Room Air Allergies Coded Allergies: ciprofloxacin (From CIPRO) (MYALGIAS 03/23/18) cortisone (RASH 03/23/18) hydrocodone (ALMOST FAINTED, GI UPSET 03/23/18) methylprednisolone (HIVES 03/23/18) Triage Note: PT TO ER C/C URINARY URGENCY, FREQUENCY, AND BURNING X 1 DAY. DENIES ABD PAIN. DENIES N/V/D. Triage Nurses Notes Reviewed? yes ? N Is pt currently ? No HPI: 21-year-old female former smoker(quit 3 months back) with no significant past medical history except delivery 3 years back came to ED with chief complaint of abdominal cramps and vaginal bleeding since last night. According to patient he was in her usual state of health until 2 days back when she started to noticed having fatigue and this morning she experienced having lower abdominal pain, diffuse, continuous, nonradiating, no aggravating or relieving factor. Patient also reported having burning micturition that she experienced this morning. Patient is urinating frequently. Patient denied chest pain, palpitation, nausea, vomiting, chills, fever, diarrhea, constipation, lightheadedness, sick contact, and discharge from urethra. Patient was admitted to hospital on March 23 when she was treated for UTI as she was growing Pseudomonas and enterococci in the urine. Patient was treated with IV ceftaz addendum and ampicillin. The discharge patient went to see director translation for found patient having bladder prolapse and she send the patient to urologist. Patient has urology appointment on 15 of April. (Gerard CRAIG,Yasmany) Reconcile Medications Alprazolam 0.5 MG TABLET 1 TAB PO QPM PRN ANXIETY (Reported) Amlodipine Besylate 5 MG TABLET 1 TAB PO DAILY BP (Reported) Ampicillin Trihydrate 500 MG CAPSULE 1 CAP PO TID UTI Aspirin (Ecotrin*) 81 MG TABLET.DR 1 TAB PO DAILY HEART/BLOOD (Reported) Atorvastatin Calcium 10 MG TABLET 1 TAB PO DAILY CHOLESTEROL (Reported) Calcium (Elemental-Fr Calcarb) (Calcium) 600 MG CALCIUM (1,500 MG) TABLET 1 TAB PO BID SUPPLEMENT (Reported) Cholecalciferol (Vitamin D3) (Vitamin D) 2,000 UNIT CAPSULE 1 CAP PO DAILY SUPPLEMENT (Reported) Estradiol (Estrace) 0.01 % CREAM.APPL 1 GM VG MONTHRUFRI HRT (Reported) Estradiol 0.025 MG/24 HOUR PATCH.TDWK 1 PATCH TOP QWED HRT (Reported) Folic Acid 20 MG CAPSULE 2 CAP PO DAILY SUPPLEMENT (Reported) Gluc 2KCL/Chondr/Sarabjit Hy/Hy AC (Glucosamine & Chondroitin Cap) (Unknown Strength ) CAPSULE (Unknown Dose) PO DAILY SUPPLEMENT (Reported) Lactobacillus Acidophilus (Probiotic) (Unknown Strength) CAPSULE (Unknown Dose ) PO DAILY PROBIOTIC (Reported) Levothyroxine Sodium 50 MCG TABLET 1 TAB PO DAILY THYROID (Reported) Loratadine (Claritin) 10 MG TABLET 1 TAB PO DAILY ALLERGIES (Reported) Magnesium Oxide (Magnesium) 400 MG CAPSULE 1 CAP PO DAILY SUPPLEMENT ( Reported) Metoprolol Succinate 200 MG TAB.ER.24H 1 TAB PO DAILY HEART/BP (Reported) Multiple Vitamin (Multivitamins) 1 EACH TABLET 1 TAB PO DAILY SUPPLEMENT ( Reported) Nitrofurantoin Macrocrystal (Macrodantin) 100 MG CAPSULE 1 CAP PO BID UTI Olmesartan Medoxomil (Benicar) 40 MG TABLET 1 TAB PO DAILY BP (Reported) [place]-3 Fatty Acids/Fish Oil ([facility] Fish Oil 1,200 MG Softgel) 360 MG-1,200 MG CAPSULE 1 CAP PO BID SUPPLEMENT (Reported) Omeprazole 20 MG CAPSULE.DR 1 CAP PO DAILY GI (Reported) Tramadol HCl 50 MG TABLET 1 TAB PO Q6P PRN PAIN (Reported) (Wilner CRAIG,Deepak Ramirez) Past History Travel History Traveled to [place] past 21 day No Medical History Neurological: NONE EENT: NONE Cardiovascular: hypertension, hyperlipidemia Respiratory: NONE Gastrointestinal: GERD Hepatic: NONE Renal: nephrolithiasis, recurrent UTI's Musculoskeletal: NONE Psychiatric: NONE Endocrine: hypothyroidism Blood Disorders: NONE Cancer(s): NONE 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 see below for history Psychosocial History ETOH Use: denies use Illicit Drug Use: denies illicit drug use Family History Hx Contributory? No (Deepak Darby MD) Review of Systems Review of Systems Constitutional: Denies: chills, fever, weakness. EENTM: Reports: no symptoms. Respiratory: Denies: cough, short of breath, sputum production, wheezing. Cardiovascular: Denies: chest pain, palpitations, syncope. GI: Reports: abdominal pain. Denies: diarrhea, nausea, vomiting. Genitourinary: Reports: frequency, pain. Musculoskeletal: Reports: no symptoms. Neurological/Psychological: Reports: no symptoms. (Yasmany Gee MD) Review of Systems Hematologic/Endocrine: Reports: no symptoms. Immunologic/Allergic: Reports: no symptoms. All Other Systems: Reviewed and Negative (Deepak Darby MD) Physical Exam Physical Exam General Appearance: well developed/nourished, no apparent distress, alert, awake Head: atraumatic Eyes: Bilateral: normal appearance, PERRL, EOMI. Ears, Nose, Throat, Mouth: hearing grossly normal Neck: normal inspection, supple Respiratory: normal breath sounds Cardiovascular: regular rate/rhythm Gastrointestinal: normal bowel sounds, soft Extremities: normal range of motion (Yasmany Gee MD) Physical Exam Neurologic/Psych: no motor/sensory deficits, awake, alert, oriented x 3, normal gait, normal mood/affect Core Measures ACS in differential dx? No Sepsis Present: No Sepsis Focused Exam Completed? No (Deepak Darby MD) Progress Differential Diagnosis: PID/cervicitis, UTI/pyelo, Atrophic vaginitis Plan of Care: Orders Procedure Date/time Status CBC WITHOUT DIFFERENTIAL 04/07 1549 Complete CULTURE,URINE 04/07 1535 Active URINALYSIS 04/07 1535 Complete Laboratory Tests 04/07/18 1607: CBC w Diff NO MAN DIFF REQ, RBC 5.71 H, MCV 70.8 L, MCH 22.9 L, MCHC 32.3 L, RDW 15.8 H, MPV 9.1, Gran % 77.6 H, Lymphocytes % 16.9 L, Monocytes % 5.1, Eosinophils % 0.3, Basophils % 0.1, Absolute Granulocytes 6.7 H, Absolute Lymphocytes 1.5, Absolute Monocytes 0.4, Absolute Eosinophils 0, Absolute Basophils 0 04/07/18 1537: Urine Color YEL, Urine Clarity HAZY H, Urine pH 6.5, Ur Specific [place] <= 1.005, Urine Protein NEG, Urine Ketones NEG, Urine Nitrite POS H, Urine Bilirubin NEG, Urine Urobilinogen 0.2, Ur Leukocyte Esterase LARGE H, Ur Microscopic SEDIMENT EXAMINED, Urine RBC RARE, Urine WBC > 75 H, Ur Epithelial Cells MOD H, Urine Bacteria MANY H, Urine Hemoglobin TRACE-INTACT, Urine Glucose NEG Microbiology 04/07 1550 URINE ROUT: Urine Culture - CAN Cancelled: SPECIMEN NOT RECEIVED - DUPLICATE TESTING [id number] - SEE 04/07 1537 URINE ROUT: Urine Culture - RECD Initial ED EKG: none Comments: 21-year-old female former smoker(quit 3 months back) with no significant past medical history except delivery 3 years back came to ED with chief complaint of abdominal cramps and vaginal bleeding since last night. We will repeat urinalysis and urine culture and we will reduce WBC count. Patient could have chronic colonization as she didn't develop any fever. Her atrophic vaginitis and prolapse of bladder can explain frequency of urination. Her urinalysis came back positive, we will give her 1 dose of Ceftaz and discharge her on oral ampicillin and Macrobid for 10 days. (Gerard CRAIG,Yasmany) Departure Departure Disposition: HOME OR SELF CARE Condition: Stable Clinical Impression Primary Impression: Recurrent UTI Referrals: Ada CRAIG,Trey Roldan (PCP/Family) Additional Instructions: Please follow up with her primary care physician in one week. please follow up with her director translation in 1 week. Please follow up with your urologist in 1 week. Departure Forms: Customer Survey General Discharge Information Prescriptions: Current Visit Scripts Ampicillin Trihydrate 1 CAP PO TID #30 CAP Nitrofurantoin Macrocrystal (Macrodantin) 1 CAP PO BID #20 CAP (Yasmany Gee MD) Resident Co-Sign Statement Statement: ED Attending supervision documentation- [X] I saw and evaluated the patient. I have also reviewed all the pertinent lab results and diagnostic results. I agree with the findings and the plan of care as documented in the Resident's documentation. [X] I have reviewed the ED Record and agree with the Resident's documentation. [] Additions or exceptions (if any) to the Resident's note and plan are summarized below: [] (Wilner CRAIG,Deepak Ramirez)
[2018-04-07] MEDS ORDERED: MACRODANTIN100 M1 PO (16:44)
[2018-04-07] MEDS ORDERED: AMPICILLIN TRI500 MG PO (16:44)
[2018-04-07 17:10] VITALS: BP 140/82
--- NOTE | 2018-04-22 12:40 | ED GI/GU/ABDOMINAL COMPLAINT ---
History of Present Illness General Chief Complaint: uti symptoms, pain/burning in vaginal a Stated Complaint: CYSTOCELE Source: patient, old records Exam Limitations: no limitations Vital Signs & Intake/Output Vital Signs & Intake/Output Temperature 98.1, pulse 94, respiratory rate 18, blood pressure 183/81, oxygen saturation 97% on room air Reconcile Medications Alprazolam 0.5 MG TABLET 1 TAB PO QPM PRN ANXIETY (Reported) Amlodipine Besylate 5 MG TABLET 1 TAB PO DAILY BP (Reported) Ampicillin Trihydrate 500 MG CAPSULE 1 CAP PO TID UTI Aspirin (Ecotrin*) 81 MG TABLET.DR 1 TAB PO DAILY HEART/BLOOD (Reported) Atorvastatin Calcium 10 MG TABLET 1 TAB PO DAILY CHOLESTEROL (Reported) Calcium (Elemental-Fr Calcarb) (Calcium) 600 MG CALCIUM (1,500 MG) TABLET 1 TAB PO BID SUPPLEMENT (Reported) Cholecalciferol (Vitamin D3) (Vitamin D) 2,000 UNIT CAPSULE 1 CAP PO DAILY SUPPLEMENT (Reported) Estradiol (Estrace) 0.01 % CREAM.APPL 1 GM VG MONTHRUFRI HRT (Reported) Estradiol 0.025 MG/24 HOUR PATCH.TDWK 1 PATCH TOP QWED HRT (Reported) Folic Acid 20 MG CAPSULE 2 CAP PO DAILY SUPPLEMENT (Reported) Gluc 2KCL/Chondr/Sarabjit Hy/Hy AC (Glucosamine & Chondroitin Cap) (Unknown Strength ) CAPSULE (Unknown Dose) PO DAILY SUPPLEMENT (Reported) Lactobacillus Acidophilus (Probiotic) (Unknown Strength) CAPSULE (Unknown Dose ) PO DAILY PROBIOTIC (Reported) Levothyroxine Sodium 50 MCG TABLET 1 TAB PO DAILY THYROID (Reported) Loratadine (Claritin) 10 MG TABLET 1 TAB PO DAILY ALLERGIES (Reported) Magnesium Oxide (Magnesium) 400 MG CAPSULE 1 CAP PO DAILY SUPPLEMENT ( Reported) Metoprolol Succinate 200 MG TAB.ER.24H 1 TAB PO DAILY HEART/BP (Reported) Multiple Vitamin (Multivitamins) 1 EACH TABLET 1 TAB PO DAILY SUPPLEMENT ( Reported) Nitrofurantoin Macrocrystal (Macrodantin) 100 MG CAPSULE 1 CAP PO BID UTI Olmesartan Medoxomil (Benicar) 40 MG TABLET 1 TAB PO DAILY BP (Reported) [place]-3 Fatty Acids/Fish Oil ([facility] Fish Oil 1,200 MG Softgel) 360 MG-1,200 MG CAPSULE 1 CAP PO BID SUPPLEMENT (Reported) Omeprazole 20 MG CAPSULE.DR 1 CAP PO DAILY GI (Reported) Tramadol HCl 50 MG TABLET 1 TAB PO Q6P PRN PAIN (Reported) Triage Note: PT TO ER C/C URINARY URGENCY, FREQUENCY, AND BURNING X 1 DAY. DENIES ABD PAIN. DENIES N/V/D. Triage Nurses Notes Reviewed? yes ? n Is pt currently ? No HPI: 77-year-old female with PMH of hypertension, hyperlipidemia, GERD, nephrolithiasis, recurrent UTIs and hypothyroidism came to ED with chief complain of fatigue, frequency of urination and lower abdominal pain. According to patient he was in her usual state of health until 2 days back when she started to noticed having fatigue and this morning she experienced having lower abdominal pain, diffuse, continuous, nonradiating, no aggravating or relieving factor. Patient also reported having burning micturition that she experienced this morning. Patient is urinating frequently. Patient denied chest pain, palpitation, nausea, vomiting, chills, fever, diarrhea, constipation, lightheadedness, sick contact, and discharge from urethra. Patient was admitted to hospital on March 23 when she was treated for UTI as she was growing Pseudomonas and enterococci in the urine. Patient was treated with IV ceftaz addendum and ampicillin. The discharge patient went to see surgical garment fitter for found patient having bladder prolapse and she send the patient to urologist. Patient has urology appointment on 15 of April. (Yasmany Gee MD) Past History Travel History Traveled to [place] past 21 day No Medical History Any Pertinent Medical History? see below for history Neurological: NONE EENT: NONE Cardiovascular: hypertension, hyperlipidemia Respiratory: NONE Gastrointestinal: GERD Hepatic: NONE Renal: nephrolithiasis, recurrent UTI's Musculoskeletal: NONE Psychiatric: NONE Endocrine: hypothyroidism Blood Disorders: NONE Cancer(s): NONE PSYCH COORDINATOR/Reproductive: NONE History of MRSA: No History of VRE: No History of CDIFF: No Surgical History Surgical History: hysterectomy, cystoscopy February 2018 Lithotripsy in Psychosocial History Who do you live with Patient/Self Services at Home None What is your primary language [place]an Family History Hx Contributory? No (Yasmany Gee MD) Review of Systems Review of Systems Constitutional: Denies: chills, fever. EENTM: Reports: no symptoms. Respiratory: Denies: cough, short of breath, sputum production, wheezing. Cardiovascular: Denies: chest pain, palpitations, syncope. GI: Reports: abdominal pain. Denies: constipation, diarrhea, nausea, vomiting. Genitourinary: Reports: frequency, pain. Musculoskeletal: Reports: no symptoms. Neurological/Psychological: Reports: no symptoms. (Yasmany Gee MD) Physical Exam Physical Exam General Appearance: well developed/nourished, no apparent distress Head: atraumatic, normal appearance Eyes: Bilateral: normal appearance, PERRL, EOMI, normal inspection. Ears, Nose, Throat, Mouth: hearing grossly normal Neck: normal inspection, supple Respiratory: normal breath sounds, chest non-tender Cardiovascular: regular rate/rhythm Gastrointestinal: normal bowel sounds, soft Extremities: normal range of motion Neurologic/Psych: no motor/sensory deficits, awake, alert, oriented x 3 Core Measures ACS in differential dx? No Sepsis Present: No Sepsis Focused Exam Completed? No (Yasmany Gee MD) Progress Differential Diagnosis: PID/cervicitis, UTI/pyelo, Atrophic vaginitis Plan of Care: 77-year-old female with PMH of hypertension, hyperlipidemia, GERD, nephrolithiasis, recurrent UTIs and hypothyroidism came to ED with chief complain of fatigue, frequency of urination and lower abdominal pain. We will repeat urinalysis and urine culture and we will reduce WBC count. Patient could have chronic colonization as she didn't develop any fever. Her atrophic vaginitis and prolapse of bladder can explain frequency of urination. Her urinalysis came back positive, we will give her 1 dose of Ceftaz and discharge her on oral ampicillin and Macrobid for 10 days. Initial ED EKG: none Comments: 77-year-old female with PMH of hypertension, hyperlipidemia, GERD, nephrolithiasis, recurrent UTIs and hypothyroidism came to ED with chief complain of fatigue, frequency of urination and lower abdominal pain. We will repeat urinalysis and urine culture and we will reduce WBC count. Patient could have chronic colonization as she didn't develop any fever. Her atrophic vaginitis and prolapse of bladder can explain frequency of urination. Her urinalysis came back positive, we will give her 1 dose of Ceftaz and discharge her on oral ampicillin and Macrobid for 10 days. (Yasmany Gee MD) Departure Departure Disposition: HOME OR SELF CARE Condition: Stable Clinical Impression Primary Impression: Recurrent UTI Referrals: Ada CRAIG,Trey Roldan (PCP/Family) Additional Instructions: Please follow up with her primary care physician in one week. please follow up with her surgical garment fitter in 1 week. Please follow up with your urologist in 1 week. Comments Ampicillin Trihydrate 1 CAP PO TID #30 CAP Nitrofurantoin Macrocrystal (Macrodantin) 1 CAP PO BID #20 CAP Patient was discharged on these antibiotics and instructed to follow her urologist and surgical garment fitter. Patient was advised to come back if symptoms worsen. (Gerard CRAIG,Jade) Departure Prescriptions: Current Visit Scripts Ampicillin Trihydrate 1 CAP PO TID #30 CAP Nitrofurantoin Macrocrystal (Macrodantin) 1 CAP PO BID #20 CAP Resident Co-Sign Statement Statement: ED Attending supervision documentation- [X] I saw and evaluated the patient. I have also reviewed all the pertinent lab results and diagnostic results. I agree with the findings and the plan of care as documented in the Resident's documentation. [X] I have reviewed the ED Record and agree with the Resident's documentation. [] Additions or exceptions (if any) to the Resident's note and plan are summarized below: [] (Wilner CRAIG,Deepak Ramirez)
== END 2018-04-07 17:09 ==
LOC: ERH 15:23
PROVIDERS: Student in an Organized Health Care Education/Training Program
DX: N39.0 Urinary tract infection, site not specified (principal)
CPT/HCPCS: 81001; 87086; 96374; J0713

== ENCOUNTER 2018-05-20 20:24 | Inpatient (IN) | payer OTHER, MEDICARE ==
[~2018-05-20] VITALS: Ht 154.9 cm; Wt 77.6 kg
[~2018-05-20 20:24] MED LIST changes: +AMPICILLIN TRI500 MG PO; +CEPHALEXIN500 M3 PO; +CIPRO500 M1 PO; +CIPROFLOXACIN250 M1 PO; +COLACE100 M1 PO; +SENNA8.6 M3 PO
[2018-05-20 22:38] LABS: HEMATOCRIT 37.7 % (37-47); MEAN CORPUSCULAR HGB 22.8 PG (27.0-31.0); MEAN CORPUSCULAR HGB CONC 32.2 G/DL (33.0-37.0); MEAN CORPUSCULAR VOLUME 70.8 FL (81.0-99.0); MEAN PLATELET VOLUME 9.3 FL (7.4-10.4); PLATELET COUNT 293 /CUMM (130-400); RBC DISTRIBUTION WIDTH 16.1 % (11.5-14.5); RED BLOOD CELL CT 5.33 /CUMM (4.20-5.40); WHITE BLOOD CELL COUNT 7.7 /CUMM (4.8-10.8)
--- NOTE | 2018-05-20 22:50 | ED GI/GU/ABDOMINAL COMPLAINT ---
History of Present Illness General Chief Complaint: Nausea, Vomiting, Diarrhea Stated Complaint: URINARY BURNING;NAUSEA; DIAHHREA Source: patient, family, old records Exam Limitations: no limitations Vital Signs & Intake/Output Vital Signs & Intake/Output Vital Signs Date Time Temp Pulse Resp B/P B/P Pulse O2 O2 Flow FiO2 Mean Ox Delivery Rate 05/21 0207 97.6 92 20 182/90 97 05/21 0153 Room Air 05/20 2356 98.9 87 18 183/87 96 Room Air 05/20 2034 96.4 99 20 186/97 98 Room Air ED Intake and Output 05/21 0000 05/20 1200 Intake Total Output Total Balance Patient 0 lb Weight Allergies Coded Allergies: cortisone (RASH 03/23/18) hydrocodone (ALMOST FAINTED, GI UPSET 03/23/18) methylprednisolone (HIVES 03/23/18) ciprofloxacin (From CIPRO) (MYALGIAS, STOMACH UPSET 04/30/18) Reconcile Medications Alprazolam 0.5 MG TABLET 1 TAB PO QPM PRN ANXIETY (Reported) Amlodipine Besylate 5 MG TABLET 1 TAB PO DAILY BP (Reported) Aspirin (Ecotrin*) 81 MG TABLET.DR 1 TAB PO DAILY HEART/BLOOD (Reported) Atorvastatin Calcium 10 MG TABLET 1 TAB PO DAILY CHOLESTEROL (Reported) Calcium (Elemental-Fr Calcarb) (Calcium) 600 MG CALCIUM (1,500 MG) TABLET 1 TAB PO BID SUPPLEMENT (Reported) Cholecalciferol (Vitamin D3) (Vitamin D) 2,000 UNIT CAPSULE 1 CAP PO DAILY SUPPLEMENT (Reported) Ciprofloxacin HCl (Cipro) 500 MG TABLET 1 TAB PO BID Urinary Infection Please take one pill tonight and then twice daily for the following days with meals. Docusate Sodium (Colace) 100 MG CAPSULE 1 CAP PO BID PRN CONSTIPATION As needed for constipation Estradiol (Estrace) 0.01 % CREAM.APPL 1 GERBER VG DAILY HRT (Reported) Folic Acid 20 MG CAPSULE 2 CAP PO DAILY SUPPLEMENT (Reported) Gluc 2KCL/Chondr/Sarabjit Hy/Hy AC (Glucosamine & Chondroitin Cap) (Unknown Strength ) CAPSULE (Unknown Dose) PO DAILY SUPPLEMENT (Reported) Lactobacillus Acidophilus (Probiotic) (Unknown Strength) CAPSULE (Unknown Dose ) PO DAILY PROBIOTIC (Reported) Levothyroxine Sodium 50 MCG TABLET 1 TAB PO DAILY THYROID (Reported) Loratadine (Claritin) 10 MG TABLET 1 TAB PO DAILY ALLERGIES (Reported) Magnesium Oxide (Magnesium) 400 MG CAPSULE 1 CAP PO DAILY SUPPLEMENT ( Reported) Metoprolol Succinate 200 MG TAB.ER.24H 1 TAB PO DAILY HEART/BP (Reported) Multiple Vitamin (Multivitamins) 1 EACH TABLET 1 TAB PO DAILY SUPPLEMENT ( Reported) Olmesartan Medoxomil (Benicar) 40 MG TABLET 1 TAB PO DAILY BP (Reported) [place]-3 Fatty Acids/Fish Oil ([facility] Fish Oil 1,200 MG Softgel) 360 MG-1,200 MG CAPSULE 1 CAP PO BID SUPPLEMENT (Reported) Omeprazole 20 MG CAPSULE.DR 1 CAP PO DAILY GI (Reported) Sennosides (Senna) 8.6 MG TABLET 2 TAB PO DAILY PRN CONSTIPATION As needed for constipation. Tramadol HCl 50 MG TABLET 1 TAB PO Q6P PRN PAIN (Reported) Triage Note: PT TO ED C/O BURNING WITH URINATION AND +N/V/D SINCE LAST NIGHT. PMH OF RECURRENT UTI'S. 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 PT C/O ABD BLOATING, POOR APPETITE, CHILLS. IS CURRENTLY TAKING KEFLEX. WAS CHANGED FROM CIPRO A COUPLE OF DAYS AGO. Triage Nurses Notes Reviewed? yes LMP (ages 10-50): post menopausal ? n Is pt currently ? No Onset: Last week Duration: constant, continues in ED, getting worse Timing: recent history Quality/Severity: aching, burning, fullness, moderate Location: suprapubic Radiation: no radiation Activities at Onset: rest Prior Abdominal Problems: similar symptoms Past Sexual History: Unobtainable at this time Modifying Factors: Worsens With: urinating. Associated Symptoms: abdominal pain, dysuria, nausea/vomiting HPI: 2 weeks prior to admission patient reports having bladder suspension surgery. 1 week prior to admission she developed recurrent symptoms of UTI started on Cipro then changed to Keflex. She presents with continued dysuria bloating suprapubic discomfort nausea. She denies fever chills vomiting diarrhea chest pain cough shortness of breath rash bleeding headache. Past History Travel History Traveled to [place] past 21 day No Medical History Any Pertinent Medical History? see below for history Neurological: NONE EENT: NONE Cardiovascular: hypertension, hyperlipidemia Respiratory: NONE Gastrointestinal: GERD Hepatic: NONE Renal: nephrolithiasis, recurrent UTI's vaginal prolapse of bladder, ANJALI Musculoskeletal: NONE Psychiatric: NONE Endocrine: hypothyroidism Blood Disorders: NONE Cancer(s): NONE OIL LEASE BUYER/Reproductive: NONE History of MRSA: No History of VRE: No History of CDIFF: No Surgical History Surgical History: hysterectomy, cystoscopy February 2018 Lithotripsy in HIP REPLACEMENT 2013 BUNYONECTOMY 2014 Psychosocial History Who do you live with Patient/Self Services at Home None What is your primary language Greek Tobacco Use: Never used ETOH Use: denies use Illicit Drug Use: denies illicit drug use Family History Hx Contributory? No Review of Systems Review of Systems Constitutional: Reports: no symptoms. EENTM: Reports: no symptoms. Respiratory: Reports: no symptoms. Cardiovascular: Reports: no symptoms. GI: Reports: see HPI, abdominal pain. Genitourinary: Reports: see HPI, dysuria. Musculoskeletal: Reports: no symptoms. Skin: Reports: no symptoms. Neurological/Psychological: Reports: no symptoms. Hematologic/Endocrine: Reports: no symptoms. Immunologic/Allergic: Reports: no symptoms. All Other Systems: Reviewed and Negative Physical Exam Physical Exam General Appearance: well developed/nourished, alert, awake, anxious, mild distress, obese Head: atraumatic, normal appearance Eyes: Bilateral: normal appearance, PERRL, EOMI, normal inspection. Ears, Nose, Throat, Mouth: hearing grossly normal, moist mucous membrane Neck: normal inspection, supple, full range of motion, normal alignment Respiratory: normal breath sounds, chest non-tender, no respiratory distress, quiet respiration, lungs clear Cardiovascular: regular rate/rhythm, normal peripheral pulses, norml femoral pulses equa Peripheral Pulses: 4+ carotid (R), 4+ carotid (L) Gastrointestinal: normal bowel sounds, soft, no organomegaly, distention, tenderness Back: normal inspection, normal range of motion Extremities: normal range of motion, no ligament instability Neurologic/Psych: no motor/sensory deficits, awake, alert, oriented x 3, normal gait, normal mood/affect, 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 No Sepsis Present: No Sepsis Focused Exam Completed? No Progress Differential Diagnosis: UTI/pyelo Plan of Care: Orders Procedure Date/time Status CBC WITHOUT DIFFERENTIAL 05/22 600 Active BASIC ELECTROLYTES PLUS BUN&CR 05/22 600 Active Regular Diet 05/21 B Active Vital Signs 09/04 0105 Active Teach/Educate 05/21 105 Active Pain Treatment and Response 05/21 105 Active Nutritional Intake, Monitor 05/21 105 Active Isolation 05/21 105 Active Intake & Output 05/21 105 Active Patient Care Conference 05/21 105 Active Activity/Ambulation 05/21 105 Active BLOOD CULTURE 05/20 235 Active Pathway - chart 05/20 234 Active Patient Data 05/20 234 Active BLOOD CULTURE 05/20 234 Active Patient Data 05/20 233 Active OXYGEN SETUP (GEN) 05/20 2330 Active Saline Lock 05/[address] in observation 05/20 2330 Active Vital Signs 05/20 2330 Active Activity/Ambulation 05/20 2330 Active Add-on Test (ER Only) 05/20 2152 Active COMPREHENSIVE METABOLIC PANEL 05/20 2152 Complete CBC WITHOUT DIFFERENTIAL 05/20 2152 Complete CULTURE,URINE 05/20 2038 Active URINALYSIS 05/20 2038 Complete House Staff 05/20 UNK Active VTE Mechanical Prophylaxis 05/20 UNK Active Vital Signs 05/20 UNK Active Intake & Output 05/20 UNK Active Activity/Ambulation 05/20 UNK Complete Current Medications Sig/Fletcher Start time Last Medication Dose Stop Time Status Admin Atorvastatin Calcium 10 MG 1700 05/21 1700 AC (Lipitor) Amlodipine Besylate 5 MG DAILY 05/21 900 AC (Norvasc) Aspirin Buffered 81 MG DAILY 05/21 900 AC (Ecotrin) Calcium 600 MG BID 05/21 900 AC (Calcium Carbonate 600 MG Tab) Cholecalciferol 2,000 IU DAILY 05/21 900 AC (Vitamin D) Enoxaparin Sodium 40 MG DAILY 05/21 900 AC (Lovenox) Folic Acid 1 MG DAILY 05/21 900 AC (Folic Acid) Magnesium Oxide 400 MG DAILY 05/21 900 AC (Mag-Ox) Metoprolol Succinate 200 MG DAILY 05/21 900 AC (Toprol Xl) Omeprazole 20 MG DAILY 05/21 900 AC (Prilosec) Levothyroxine Sodium 0.05 MG DAILY AC 05/21 700 AC (Synthroid) Losartan Potassium 100 MG DAILY 05/21 0200 AC 05/21 (Cozaar) 0214 Alprazolam 0.5 MG QPM PRN 05/21 0130 AC 05/21 (Xanax) 05/28 0129 0159 Tramadol HCl 50 MG Q6 PRN 05/21 013 AC (Ultram) Acetaminophen 650 MG Q6P PRN 05/20 234 AC (Tylenol) Acetaminophen 1,000 MG Q6P PRN 05/20 234 AC (Ofirmev) Sodium Chloride 1,000 ML SEE RATE 05/20 234 AC (Normal Saline 0.9%) 05/22 0624 Laboratory Tests 05/20/183: Anion Gap 11, Estimated GFR > 60, BUN/Creatinine Ratio 22.5, Glucose 122 H, Calcium 10.1, Total Bilirubin 0.5, AST 25, ALT 31, Alkaline Phosphatase 68, Total Protein 8.1, Albumin 4.8, Globulin 3.3, Albumin/Globulin Ratio 1.5, CBC w Diff MAN DIFF ORDERED, RBC 5.33, MCV 70.8 L, MCH 22.8 L, MCHC 32.2 L, RDW 16.1 H, MPV 9.3, Segmented Neutrophils 71, Lymphocytes 23, Monocytes 5, Eosinophils 1, Platelet Estimate ADEQUATE, Anisocytosis 1+, Microcytic Cells 2+ 05/20/182038: Urinalysis LIGHT H, Urine Color STRAW, Urine Clarity CLEAR, Urine pH 6.5, Ur Specific [place] 1.010, Urine Protein NEG, Urine Ketones NEG, Urine Nitrite NEG, Urine Bilirubin NEG, Urine Urobilinogen 0.2, Ur Leukocyte Esterase SMALL H, Ur Microscopic SEDIMENT EXAMINED, Urine RBC 1-3, Urine WBC 3-5 H, Ur Epithelial Cells MOD H, Urine Bacteria RARE H, Urine Hemoglobin TRACE-INTACT, Urine Glucose NEG Microbiology 05/21 015 BLOOD: Blood Culture - RECD 05/21 100 BLOOD: Blood Culture - RECD 05/20 2038 URINE ROUT: Urine Culture - RECD Initial ED EKG: none Departure Departure Time of Disposition: 2300 Disposition: STILL A PATIENT Condition: Stable Clinical Impression Primary Impression: Postoperative urinary retention Secondary Impressions: Urinary tract infection Referrals: Ada CRAIG,Trey Roldan (PCP/Family) Departure Forms: Customer Survey General Discharge Information Admission Note Spoke With: Miguelito Gibbons MD Documentation of Exam: Documentation of any treatments & extenuating circumstances including Concerns Regarding Discharge (functional status, medication knowledge or non-compliance, living conditions, etc.) that warrant an admission rather than observation: IV antibiotics follow cultures neurology evaluation medication adjustment continuing care discharge planning
--- NOTE | 2018-05-20 23:47 | History & Physical ---
Rene Bowen 05/20/18 5140: General Information and [facility] MD Statement: I have seen and personally examined SEBASTIÁN KENDRICK and documented this H&P. The patient is a 77 year old F who presented with a patient stated chief complaint of dysuria. Source of Information: patient, family Exam Limitations: no limitations History of Present Illness: 77-year-old female with a past medical history significant for of recurrent UTIs , HTN, HLD, GERD, Status post cystocele repair with mesh and urethral sling 3 weeks ago (05/01/18). She presents to [place] [facility] ED complaining of dysuria, increased urinary frequency, incomplete voiding, and bloating/discomfort around the bladder. This past year she was admitted to [place] [facility] for similar complaints. In March 2018, she was fitted with a pessary for her bladder prolapse but it was removed the following day as it was causing too much discomfort. She was then put on a Keflex regimen. She was admitted again 04/28/18, for similar symptoms and she was put on a ceftazidime regimen because of a previous urine culture showing Pseudomonas. This time she was fitted with a sling and mesh on 05/01/18 and discharged on ciprofloxacin. However, urine cultures on 05/13/18 showed that E Coli resistant to ciprofloxacin so her regimen was changed to Keflex at the urology outpatient service. Currently she is continuing her Keflex regimen, but she continued to be symptomatic and the day before presentation her symptoms were intolerable and therefore she presents to emergency department today. She endorses a significant amount of bloating, poor appetite, chills, pain in the suprapubic/epigastric area. It does not radiate anywhere, and it is not relieved or worsened by any factors known to the patient. It is reproducible by palpation. She also reports that last night she had 3 watery stools and some nausea. She denies any hematuria. Allergies/Medications Allergies: Coded Allergies: cortisone (RASH 03/23/18) hydrocodone (ALMOST FAINTED, GI UPSET 03/23/18) methylprednisolone (HIVES 03/23/18) ciprofloxacin (From CIPRO) (MYALGIAS, STOMACH UPSET 04/30/18) Observation Initial Note - I have personally examined SEBASTIÁN KENDRICK on 05/20/18 at 2353. The disposition of SEBASTIÁN KENDRICK is uncertain at this time and before a determination can be made, she requires a period of observation for the following reasons dysuria, suprapubic discomfort and pain. Past History Travel History Traveled to [place] past 21 day No Medical History Neurological: NONE EENT: NONE Cardiovascular: hypertension, hyperlipidemia Respiratory: NONE Gastrointestinal: GERD Hepatic: NONE Renal: nephrolithiasis, recurrent UTI's vaginal prolapse of bladder, ANJALI Musculoskeletal: NONE Psychiatric: NONE Endocrine: hypothyroidism Blood Disorders: NONE Cancer(s): NONE LEAD PRODUCER/Reproductive: NONE History of MRSA: No History of VRE: No History of CDIFF: No Surgical History Surgical History: hysterectomy, cystoscopy February 2018 Lithotripsy in HIP REPLACEMENT 2012 BUNYONECTOMY 2014 Past Family/Social History Family History Relations & Conditions if any Relation not specified for: *No pertinent family history Psychosocial History Who Do You Live With? spouse (Daughter) Services at Home: None Primary Language: Wallisian ETOH Use: denies use Illicit Drug Use: denies illicit drug use Functional Ability ADLs Independent: dressing, eating, toileting, bathing. Ambulation: independent IADLs Independent: shopping, housework, finances, food prep, telephone, transportation , medication admin. Review of Systems Review of Systems Constitutional: Reports: see HPI. Exam & Diagnostic Data Last 24 Hrs of Vital Signs/I&O Vital Signs Date Time Temp Pulse Resp B/P B/P Pulse O2 O2 Flow FiO2 Mean Ox Delivery Rate 05/21 0207 97.6 92 20 182/90 97 05/21 0153 Room Air 05/20 2356 98.9 87 18 183/87 96 Room Air 05/20 2034 96.4 99 20 186/97 98 Room Air Intake & Output 05/21 0800 05/21 0000 05/20 1600 Intake Total Output Total Balance Patient 168 lb 0 lb Weight Physical Exam General Appearance Alert, Oriented X3, Cooperative, Mild Distress Skin No Rashes Skin Temp/Moisture Exam: Warm/Dry HEENT Atraumatic, PERRLA, EOMI Neck Supple Cardiovascular Normal S1, Normal S2 Lungs Clear to Auscultation Abdomen Normal Bowel Sounds, Soft, suprapubic tenderness Extremities No Cyanosis, Normal Pulses, BL non pitting edema in Lower Ext Last 24 Hrs of Labs/Antony: Laboratory Tests 05/20/183: Anion Gap 11, Estimated GFR > 60, BUN/Creatinine Ratio 22.5, Glucose 122 H, Calcium 10.1, Total Bilirubin 0.5, AST 25, ALT 31, Alkaline Phosphatase 68, Total Protein 8.1, Albumin 4.8, Globulin 3.3, Albumin/Globulin Ratio 1.5, CBC w Diff MAN DIFF ORDERED, RBC 5.33, MCV 70.8 L, MCH 22.8 L, MCHC 32.2 L, RDW 16.1 H, MPV 9.3, Segmented Neutrophils 71, Lymphocytes 23, Monocytes 5, Eosinophils 1, Platelet Estimate ADEQUATE, Anisocytosis 1+, Microcytic Cells 2+ 05/20/182038: Urinalysis LIGHT H, Urine Color STRAW, Urine Clarity CLEAR, Urine pH 6.5, Ur Specific [place] 1.010, Urine Protein NEG, Urine Ketones NEG, Urine Nitrite NEG, Urine Bilirubin NEG, Urine Urobilinogen 0.2, Ur Leukocyte Esterase SMALL H, Ur Microscopic SEDIMENT EXAMINED, Urine RBC 1-3, Urine WBC 3-5 H, Ur Epithelial Cells MOD H, Urine Bacteria RARE H, Urine Hemoglobin TRACE-INTACT, Urine Glucose NEG Microbiology 05/21 015 BLOOD: Blood Culture - RECD 05/21 100 BLOOD: Blood Culture - RECD 05/20 2038 URINE ROUT: Urine Culture - RECD Assessment/Plan Assessment: She is a 77-year-old female with a past medical history significant for recurrent UTIs, had a recent urological procedure 3 weeks ago requiring placement of a mesh and sling for her prolapsed bladder. Presents to the ED this time with similar complaints to her previous admissions this year including dysuria, increased frequency, incomplete voiding, bloating and suprapubic discomfort. T 96.4, HR 99, RR 20, BP 186/97, 98% Room Air - Vitals appear to be within normal limits. Not meeting SIRS criteria. Her BP is currently uncontrolled, despite her being compliant with home meds. WBC, H/H, Plt - 7.7, 12.2/37.7, 293 - unremarkable Electrolytes wnl BUN/creatinine 122/0.4 - possibly some pre-renal/dehydration. LFTs - wnl UA 3-5 WBC, small leuk est - Not impressive for UTI Due to her history of having recurrent symptomatic UTIs compounded by multiple urological procedures, we will put her on observation 24-48 hrs in general medicine and continue antibiotic therapy while consulting urology and ID. Although at this point there is no evidence of infection, no white count, no fever, clean UA, we will still presume urinary tract infection due to patient's dysuria, chills and urological history. If her symptoms are unrelated to infection, there is some chance they could be due to postoperative complications , for which we will leave urology consultation to determine. Since her urine cultures are growing E. coli sensitive to Keflex, the regimen she is on right now should work if it indeed is infectious. She received 1 g of IV ceftriaxone in the ER. #Recurrent symptomatic UTI #History of urological procedures #History of hyperlipidemia #History of hypertension #History of hypothyroidism -Continue to monitor urine cultures, blood cultures, sensitivities -Monitor urine output -Gentle IV hydration -Consider empiric antibiotic?? -Urology Consult -ID consult -Continue home medications for chronic conditions -TSH levels for hx of hypothyroid -Daily BEP for kidney function DVT PPx Full Code As Ranked By This Provider Problem List: 1. Recurrent UTI Core Measures/Misc (06/03) Acute Coronary Syndrome ACS Diagnosis: No Congestive Heart Failure Congestive Heart Failure Diagnosis No Cerebrovascular Accident CVA/TIA Diagnosis: No VTE (View Protocol) VTE Risk Factors Age>40 No Mechanical VTE Prophylaxis d/t N/A MechProphylax Ordered No VTE Pharm Prophylaxis d/t NA PharmProphylax ordered Sepsis (View protocol) Sepsis Present: No If YES complete Sepsis Event Note If YES complete Sepsis Event Note DiazLester 05/20/18 4310: General Information and HPI Allergies/Medications Home Med list Amlodipine Besylate 5 MG TABLET 1 TAB PO DAILY BP (Reported) Aspirin (Ecotrin*) 81 MG TABLET.DR 1 TAB PO DAILY HEART/BLOOD (Reported) Atorvastatin Calcium 10 MG TABLET 1 TAB PO DAILY CHOLESTEROL (Reported) Calcium (Elemental-Fr Calcarb) (Calcium) 600 MG CALCIUM (1,500 MG) TABLET 1 TAB PO BID SUPPLEMENT (Reported) Cephalexin (Keflex) 500 MG CAPSULE 1 CAP PO BID Infection Cholecalciferol (Vitamin D3) (Vitamin D) 2,000 UNIT CAPSULE 1 CAP PO DAILY SUPPLEMENT (Reported) Estradiol (Estrace) 0.01 % CREAM.APPL 1 GERBER VG DAILY HRT (Reported) Folic Acid 20 MG CAPSULE 2 CAP PO DAILY SUPPLEMENT (Reported) Gluc 2KCL/Chondr/Sarabjit Hy/Hy AC (Glucosamine & Chondroitin Cap) (Unknown Strength ) CAPSULE (Unknown Dose) PO DAILY SUPPLEMENT (Reported) Lactobacillus Acidophilus (Probiotic) (Unknown Strength) CAPSULE (Unknown Dose ) PO DAILY PROBIOTIC (Reported) Levothyroxine Sodium 50 MCG TABLET 1 TAB PO DAILY THYROID (Reported) Loratadine (Claritin) 10 MG TABLET 1 TAB PO DAILY ALLERGIES (Reported) Magnesium Oxide (Magnesium) 400 MG CAPSULE 1 CAP PO DAILY SUPPLEMENT ( Reported) Metoprolol Succinate 200 MG TAB.ER.24H 1 TAB PO DAILY HEART/BP (Reported) Multiple Vitamin (Multivitamins) 1 EACH TABLET 1 TAB PO DAILY SUPPLEMENT ( Reported) Olmesartan Medoxomil (Benicar) 40 MG TABLET 1 TAB PO DAILY BP (Reported) [place]-3 Fatty Acids/Fish Oil ([facility]vs Fish Oil 1,200 MG Softgel) 360 MG-1,200 MG CAPSULE 1 CAP PO BID SUPPLEMENT (Reported) Omeprazole 20 MG CAPSULE.DR 1 CAP PO DAILY GI (Reported) Sennosides (Senna) 8.6 MG TABLET 2 TAB PO DAILY PRN CONSTIPATION As needed for constipation. Core Measures/Misc (06/03) Sepsis (View protocol) If YES complete Sepsis Event Note If YES complete Sepsis Event Note Resident Review Statement Resident Statement: examined this patient, discussed with internet merchant, agreed with internet merchant Other Findings: This is a 77-year-old female with past medical history of recurrent uti now s/p cystocele repair with mesh and urethral sling and cystoscopy (05/01/2018) hypertension, hyperlipidemia, GERD, hypothyroidism,came in with chief complain of dysuria and increased frequency. She was last admitted to [facility] with similar complaint in March 2018 as well as April 2018 and is now status post cystocele repair. More recent past medical history she endorses that she followed up with Dr. Paulino on April 11 for placement of a pessary, however because of considerable discomfort, the pessary was removed the very next day. In the first week of April she started to have frequency, dysuria, was initially started on Keflex 250 mg daily for UTI prophylaxis, however because her symptoms returned, the urine culture was obtain and the antibiotic was now changed to a treatment dose of 500 mg every 8. She returned again on 04/28/2018 with similar symptoms of frequency, dysuria, incomplete voiding, initially she was started on ceftazidime, and she had the cystocele repair with sling placement and mesh placement on 05/01/2018 and she was discharged on by mouth ciprofloxacin 500 twice a day. She was doing fine for a week after this discharge in april, however her symptoms recurred again, she was initially started on ciprofloxacin as outpatient by Dr. Paulino, however urine cultures May 13 grew Escherichia coli resistant to ciprofloxacin and therefore her antibiotics was changed to Keflex. Currently she was on day 5 of Keflex however she continued to have symptoms that worsen since one day prior to presentation therefore she presented again. Her vitals on admission she was afebrile at 96.4, pulse of 99, respiration of 20 , blood pressure 186/97, she was 98% on room air. White count of 7.7, H/H of 12.2/37.7, platelet of 293. Electrolytes within normal limits, BUN/creatinine 122/0.4. Liver function tests within normal limits. UA was essentially negative with 3-5 white blood cells, small leukocyte esterase. On physical exam she was alert oriented 3. HEENT PERRLA CVS S1 and S2 present, systolic murmur. RS bilateral air entry equal, no adventitious sounds. Per abdomen : Tenderness present on deep palpation in the lower abdomen and epigastric area. Bilateral lower extremity, mild edema noted. We will keep her on general medicine floor for 24-hour observation. Problem #1 recurrent UTI like symptoms with no evidence of sepsis/infection * Patient has been having recurrent symptoms of burning, dysuria, pain, she has been treated at least on 3 occasions. * Her most recent treatment was with Keflex, she was taking antibiotics prior to presentation was on day 01/21 with the cultures growing E coli senstivity to keflex. * I am unsure at this point if the symptoms are related to infection versus physical symptoms of prolapse itself. * With no white count,no recent procedure/instrumentation at least 2 weeks prior to today's presentation, clean UA, and no systemic signs or evidence of infection, we will keep her off antibiotics for now. * Continue to monitor vitals, intake and output, urine cultures, blood cultures. * She received 1 g of IV ceftriaxone. * Hold any further antibiotics for now. * ID consult in a.m. if she spikes fever. * Urology consult as Dr. Paulino has been following her. #2 history of hypothyroidism. * Continue levothyroxine 50 g daily. #3 history of hyperlipidemia. * Continue Lipitor 10 mg daily. #4 history of hypertension. * Continue Norvasc 5 mg daily. * Continue metoprolol XL 200 mg daily. * Continue on Mrs. olmesartan 40 mg daily. #5 continue home medication of aspirin, Xanax, calcium carbonate, vitamin D3, Claritin, magnesium oxide and supplements. Patient is allergic to hydrocodone, she gets hives, however she tolerates tramadol fine therefore for severe pain pathway we will do tramadol. full code. Mild/moderate severe pain pathway. Regular diet. DVT prophylaxis with Lovenox. Miguelito Gibbons 05/21/18 0223: Core Measures/Misc (06/03) Acute Coronary Syndrome ACS Diagnosis: No Congestive Heart Failure Congestive Heart Failure Diagnosis No Cerebrovascular Accident CVA/TIA Diagnosis: No VTE (View Protocol) VTE Risk Factors No risk factors No Mechanical VTE Prophylaxis d/t Early Ambulation No VTE Pharm Prophylaxis d/t LowRisk-No Interven Req'd Sepsis (View protocol) If YES complete Sepsis Event Note If YES complete Sepsis Event Note Attending MD Review Statement Attending Statement Attending MD Statement: examined this patient, discuss w/resident/PA/CHILD AND FAMILY SERVICES SPECIALIST, agreed w/resident/PA/CHILD AND FAMILY SERVICES SPECIALIST Attending Assessment/Plan: Addendum by . Patient was seen and examined at bedside today ( ) at .. Reviewed the history physical done by the resident. Reviewed the past medical family, family, social history. ROS: 10 point system reviewed and negative except as described above. agree with physical per residnet note, has some suprapubic tendrness, no cva tenderness. labs reviewed. a/P; #Dysuria: Probable UTI. Patient has a E. coli UTI, was on Keflex until this morning. Currently urine analysis shows less than 5 WBC, serum WBC count is normal. No fever, no systemic signs of sepsis. Patient just received a dose of ceftriaxone in the emergency room. Though symptom galicia she might have a UTI but due to lack of evidence of recurrent infection would hold off on any further antibiotics at this time. Sling and mesh, will get urology to review. If the patient continues to have urinary symptoms are if the urine cultures grows different bacteria consider antibiotics and or ID evaluation. #History of urethral prolapse, cystocele status post surgery. #Hypothyroidism, hypertension-continue the home medications. Reviewed with the resident. Agree with the rest of the plan as per resident's note. Dr.Ravinder Priscila MD. Hospitalist. Pager: [phone], cell: [phone]. Pager: [phone], cell: [phone].
[2018-05-21 02:07] VITALS: BP 182/90
[2018-05-21 06:42] VITALS: BP 158/66
--- NOTE | 2018-05-21 07:05 | PN- Housestaff ---
See Addendum Subjective Follow-up For: Recurrent UTI Subjective: Pt seen and examined this am. She was pleasant, AAOx3, breathing comfortably on room air, pleasant, complaining only of improving dysuria when compared to yesterday. Afebrile. No complains of SOB, N/V, hematuria. Review of Systems Constitutional: Reports: see HPI. Objective Last 24 Hrs of Vital Signs/I&O Vital Signs Date Time Temp Pulse Resp B/P B/P Pulse O2 O2 Flow FiO2 Mean Ox Delivery Rate 05/21 1531 97.8 82 20 140/65 97 Room Air 05/21 0911 80 152/84 05/21 0910 79 152/84 05/21 0910 80 152/84 05/21 0642 98.6 90 20 158/66 96 05/21 0207 97.6 92 20 182/90 97 Room Air 05/21 0207 97.6 92 20 182/90 97 05/21 0153 Room Air 05/20 2356 98.9 87 18 183/87 96 Room Air 05/20 2034 96.4 99 20 186/97 98 Room Air Intake & Output 05/21 1600 05/21 0800 05/21 0000 Intake Total 340 Output Total Balance 340 Intake, Oral 340 Patient 168 lb 0 lb Weight Physical Exam General Appearance: Alert, Oriented X3, Cooperative, No Acute Distress Cardiovascular: Regular Rate, Normal S1, Normal S2, No Murmurs Lungs: Clear to Auscultation Abdomen: Normal Bowel Sounds, Soft, No Tenderness Neurological: Normal Speech Extremities: No Edema Current Medications: Current Medications Sig/Fletcher Start time Last Medication Dose Route Stop Time Status Admin Acetaminophen 650 MG Q6P PRN 05/20 2345 AC PO Acetaminophen 1,000 MG Q6P PRN 05/20 2345 AC IV Alprazolam 0.5 MG QPM PRN 05/21 0130 AC 05/21 PO 05/28 0129 0159 Amlodipine Besylate 5 MG DAILY 05/21 900 AC 05/21 PO 09 Aspirin Buffered 81 MG DAILY 05/21 900 AC 05/21 PO 09 Atorvastatin Calcium 10 MG 1700 05/21 1700 AC 05/21 PO 1612 Calcium 600 MG BID 05/21 900 AC 05/21 PO 09 Ceftriaxone Sodium 1,000 MG DAILY 05/21 1411 AC 05/21 IV 1612 Ceftriaxone Sodium 0 .STK-MED ONE 05/20 2353 DC .ROUTE Ceftriaxone Sodium 1,000 MG ONCE ONE 05/20 2330 DC 05/20 IV 05/20 2331 2356 Cholecalciferol 2,000 IU DAILY 05/21 09 AC 05/21 PO 0910 Enoxaparin Sodium 40 MG DAILY 05/21 0900 AC 05/21 SC 0911 Folic Acid 1 MG DAILY 05/21 09 AC 05/21 PO 0910 Lactobacillus 1 CAP DAILY 05/21 1000 AC 05/21 Acidophilus PO 1048 Levothyroxine Sodium 0.05 MG DAILY AC 05/21 07 AC 05/21 PO 0640 Loratadine 10 MG DAILY 05/21 0921 AC 05/21 PO 1048 Losartan Potassium 100 MG DAILY 05/21 0200 AC 05/21 PO 0911 Magnesium Oxide 400 MG DAILY 05/21 09 AC 05/21 PO 0911 Metoprolol Succinate 200 MG DAILY 05/21 09 AC 05/21 PO 0910 Morphine Sulfate 1 MG Q6-PRN PRN 05/20 2345 DC IV Omeprazole 20 MG DAILY 05/21 900 AC 05/21 PO 0641 Omeprazole 20 MG ONCE ONE 05/21 0130 DC PO 05/21 0131 Ondansetron HCl 4 MG ONCE ONE 05/20 2200 DC 05/20 IV 05/20 2201 223 Ondansetron HCl 0 .STK-MED ONE 05/20 2200 DC .ROUTE Senna 187 MG AT BEDTIME PRN 05/21 0930 AC PO Sodium Chloride 1,000 ML SEE RATE 05/20 2345 AC IV 05/22 06 Tramadol HCl 50 MG Q6 PRN 05/21 0130 AC PO Last 24 Hrs of Lab/Antony Results Last 24 Hrs of Labs/Mics: Laboratory Tests 05/20/182232: Anion Gap 11, Estimated GFR > 60, BUN/Creatinine Ratio 22.5, Glucose 122 H, Calcium 10.1, Total Bilirubin 0.5, AST 25, ALT 31, Alkaline Phosphatase 68, Total Protein 8.1, Albumin 4.8, Globulin 3.3, Albumin/Globulin Ratio 1.5, CBC w Diff MAN DIFF ORDERED, RBC 5.33, MCV 70.8 L, MCH 22.8 L, MCHC 32.2 L, RDW 16.1 H, MPV 9.3, Segmented Neutrophils 71, Lymphocytes 23, Monocytes 5, Eosinophils 1, Platelet Estimate ADEQUATE, Anisocytosis 1+, Microcytic Cells 2+ 05/20/182038: Urinalysis LIGHT H, Urine Color STRAW, Urine Clarity CLEAR, Urine pH 6.5, Ur Specific [place] 1.010, Urine Protein NEG, Urine Ketones NEG, Urine Nitrite NEG, Urine Bilirubin NEG, Urine Urobilinogen 0.2, Ur Leukocyte Esterase SMALL H, Ur Microscopic SEDIMENT EXAMINED, Urine RBC 1-3, Urine WBC 3-5 H, Ur Epithelial Cells MOD H, Urine Bacteria RARE H, Urine Hemoglobin TRACE-INTACT, Urine Glucose NEG Microbiology 05/21 154 BLOOD: Blood Culture - RECD 05/21 100 BLOOD: Blood Culture - RECD 05/20 2038 URINE ROUT: Urine Culture - RES Assessment/Plan Assessment: 77 y/o F with PMH significant for recurrent UTIs, HTN, HLD, GERD, s/p cystocele repair with mesh and urethral sling on 05/[address] Paulino. She presents to [place] ED complaining of dysuria, increased urinary frequency, incomplete voiding, and bloating/discomfort around the bladder. She was admitted to the general medicine floor for further management of: PROBLEM LIST #Recurrent symptomatic UTI #History of hyperlipidemia #History of hypertension #History of hypothyroidism #Recurrent symptomatic UTI Patient has a recurring history of dysuria 2/2 her cystocele. She did have repair on the 05/01. Noted prior Ucx growing pseudomonas and E. coli that were treated to completion; she has been compliant with her antibiotics but still c/o symptoms consistent of UTIs. We will obtain ID consult due to recurrent UTIs and follow up with Dr. Paulino for further recommendations. She is afebrile, with no leukocytosis. UA not incredibly impressive for present infection. -Started ceftriaxone 1g qD -F/u Ucx -ID following -F/u with Urology's recommendation #History of hyperlipidemia / #History of hypertension /#History of hypothyroidism We have continued her home dosages of: metoprolol XL, levothyroxine, ASA, amlodipine, atorvastatin. FULL CODE Reg diet DVT PPX lovenox. Problem List: 1. UTI (urinary tract infection) Pain Ratin Pain Location: N/a Pain Goal: Remain pain free Pain Plan: As indicated Tomorrow's Labs & Rationales: BEP, cbc
--- NOTE | 2018-05-21 10:39 | Cons- Infect Disease ---
General Information and HPI Consulting Request Date of Consult: 05/21/18 Requested By: Miguelito Gibbons MD Reason for Consult: UTI Source of Information: primary team Exam Limitations: no limitations History of Present Illness: 77-year-old female with a past medical history significant for of recurrent UTIs , HTN, HLD, GERD, s/p cystocele repair with mesh and urethral sling 3 weeks ago (05/01/18), presented to [place] ED complaining of dysuria, increased urinary frequency, incomplete voiding, and bloating/discomfort around the bladder on 05/20; received one dose iv CTX; currently better. This past year she was admitted to [facility] for similar complaints. In March 2018, she was fitted with a pessary for her bladder prolapse but it was removed the following day as it was causing too much discomfort. She was admitted again 04/28, for similar symptoms and she was treated w/ iv ceftazidime, as UC grew Pseudomonas. This time she was fitted with a sling and mesh on 05/01/18 and discharged on ciprofloxacin. However, urine cultures on 05/13/18 showed that E Coli resistant to ciprofloxacin so her regimen was changed to Keflex at the urology outpatient service. Currently she is continuing her Keflex regimen, but she continued to be symptomatic and the day before presentation her symptoms were intolerable and therefore she presents to emergency department today. She endorses a significant amount of bloating, poor appetite, chills, pain in the suprapubic/epigastric area. She also reports that last night she had 3 watery stools and some nausea. She denies any hematuria. Allergies/Medications Allergies: Coded Allergies: cortisone (RASH 03/23/18) hydrocodone (ALMOST FAINTED, GI UPSET 03/23/18) methylprednisolone (HIVES 03/23/18) ciprofloxacin (From CIPRO) (MYALGIAS, STOMACH UPSET 04/30/18) Home Med List: Alprazolam 0.5 MG TABLET 1 TAB PO QPM PRN ANXIETY (Reported) Amlodipine Besylate 5 MG TABLET 1 TAB PO DAILY BP (Reported) Aspirin (Ecotrin*) 81 MG TABLET.DR 1 TAB PO DAILY HEART/BLOOD (Reported) Atorvastatin Calcium 10 MG TABLET 1 TAB PO DAILY CHOLESTEROL (Reported) Calcium (Elemental-Fr Calcarb) (Calcium) 600 MG CALCIUM (1,500 MG) TABLET 1 TAB PO BID SUPPLEMENT (Reported) Cholecalciferol (Vitamin D3) (Vitamin D) 2,000 UNIT CAPSULE 1 CAP PO DAILY SUPPLEMENT (Reported) Ciprofloxacin HCl (Cipro) 500 MG TABLET 1 TAB PO BID Urinary Infection Please take one pill tonight and then twice daily for the following days with meals. Docusate Sodium (Colace) 100 MG CAPSULE 1 CAP PO BID PRN CONSTIPATION As needed for constipation Estradiol (Estrace) 0.01 % CREAM.APPL 1 GERBER VG DAILY HRT (Reported) Folic Acid 20 MG CAPSULE 2 CAP PO DAILY SUPPLEMENT (Reported) Gluc 2KCL/Chondr/Nel Hy/Hy AC (Glucosamine & Chondroitin Cap) (Unknown Strength ) CAPSULE (Unknown Dose) PO DAILY SUPPLEMENT (Reported) Lactobacillus Acidophilus (Probiotic) (Unknown Strength) CAPSULE (Unknown Dose ) PO DAILY PROBIOTIC (Reported) Levothyroxine Sodium 50 MCG TABLET 1 TAB PO DAILY THYROID (Reported) Loratadine (Claritin) 10 MG TABLET 1 TAB PO DAILY ALLERGIES (Reported) Magnesium Oxide (Magnesium) 400 MG CAPSULE 1 CAP PO DAILY SUPPLEMENT ( Reported) Metoprolol Succinate 200 MG TAB.ER.24H 1 TAB PO DAILY HEART/BP (Reported) Multiple Vitamin (Multivitamins) 1 EACH TABLET 1 TAB PO DAILY SUPPLEMENT ( Reported) Olmesartan Medoxomil (Benicar) 40 MG TABLET 1 TAB PO DAILY BP (Reported) [place]-3 Fatty Acids/Fish Oil (Cvs Fish Oil 1,200 MG Softgel) 360 MG-1,200 MG CAPSULE 1 CAP PO BID SUPPLEMENT (Reported) Omeprazole 20 MG CAPSULE.DR 1 CAP PO DAILY GI (Reported) Sennosides (Senna) 8.6 MG TABLET 2 TAB PO DAILY PRN CONSTIPATION As needed for constipation. Tramadol HCl 50 MG TABLET 1 TAB PO Q6P PRN PAIN (Reported) Current Medications: Current Medications Sig/Fletcher Start time Last Medication Dose Route Stop Time Status Admin Acetaminophen 650 MG Q6P PRN 05/20 2345 AC PO Acetaminophen 1,000 MG Q6P PRN 05/20 2345 AC IV Alprazolam 0.5 MG QPM PRN 05/21 0130 AC 05/21 PO 05/28 0129 0159 Amlodipine Besylate 5 MG DAILY 05/21 900 AC 05/21 PO 09 Aspirin Buffered 81 MG DAILY 05/21 09 AC 05/21 PO 0911 Atorvastatin Calcium 10 MG 1700 05/21 1700 AC PO Calcium 600 MG BID 05/21 0900 AC 05/21 PO 0911 Ceftriaxone Sodium 0 .STK-MED ONE 05/20 2353 DC .ROUTE Ceftriaxone Sodium 1,000 MG ONCE ONE 05/20 2330 DC 05/20 IV 05/20 2331 2356 Cholecalciferol 2,000 IU DAILY 05/21 0900 AC 05/21 PO 0910 Enoxaparin Sodium 40 MG DAILY 05/21 0900 AC 05/21 SC 0911 Folic Acid 1 MG DAILY 05/21 0900 AC 05/21 PO 0910 Lactobacillus 1 CAP DAILY 05/21 1000 AC Acidophilus PO Levothyroxine Sodium 0.05 MG DAILY AC 05/21 0700 AC 05/21 PO 0640 Loratadine 10 MG DAILY 05/21 0921 AC PO Losartan Potassium 100 MG DAILY 05/21 0200 AC 05/21 PO 0911 Magnesium Oxide 400 MG DAILY 05/21 0900 AC 05/21 PO 0911 Metoprolol Succinate 200 MG DAILY 05/21 0900 AC 05/21 PO 0910 Morphine Sulfate 1 MG Q6-PRN PRN 05/20 2345 DC IV Omeprazole 20 MG DAILY 05/21 09 AC 05/21 PO 0641 Omeprazole 20 MG ONCE ONE 05/21 0130 DC PO 05/21 0131 Ondansetron HCl 4 MG ONCE ONE 05/20 2200 DC 05/20 IV 05/20 220 2236 Ondansetron HCl 0 .STK-MED ONE 05/20 220 DC .ROUTE Senna 187 MG AT BEDTIME PRN 05/21 0930 AC PO Sodium Chloride 1,000 ML SEE RATE 05/20 2345 AC IV 05/22 0624 Tramadol HCl 50 MG Q6 PRN 05/21 0130 AC PO Past History Travel History Traveled to [place] past 21 day No Medical History Neurological: NONE EENT: NONE Cardiovascular: hypertension, hyperlipidemia Respiratory: NONE Gastrointestinal: GERD Hepatic: NONE Renal: nephrolithiasis, recurrent UTI's vaginal prolapse of bladder, ANJALI Musculoskeletal: NONE Psychiatric: NONE Endocrine: hypothyroidism Blood Disorders: NONE Cancer(s): NONE 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 spouse (Daughter) Services at Home: None Primary Language: Swedish Smoking Status: Never Smoked ETOH Use: denies use Illicit Drug Use: denies illicit drug use Functional Ability ADLs Independent: dressing, eating, toileting, bathing. Ambulation: independent IADLs Independent: shopping, housework, finances, food prep, telephone, transportation , medication admin. Review of Systems Comments 12 points reviewed as noted, otherwise negative. Exam & Diagnostic Data Last 24 Hrs of Vital Signs/I&O Vital Signs Date Time Temp Pulse Resp B/P B/P Pulse O2 O2 Flow FiO2 Mean Ox Delivery Rate 05/21 0911 80 152/84 05/21 0910 79 152/84 05/21 0910 80 152/84 05/21 0642 98.6 90 20 158/66 96 05/21 0207 97.6 92 20 182/90 97 Room Air 05/21 0207 97.6 92 20 182/90 97 05/21 0153 Room Air 05/20 2356 98.9 87 18 183/87 96 Room Air 05/20 2034 96.4 99 20 186/97 98 Room Air Intake & Output 05/21 1600 05/21 0800 05/21 0000 Intake Total 340 Output Total Balance 340 Intake, Oral 340 Patient 168 lb 0 lb Weight Physical Exam Other Physical Findings: General Appearance Cooperative, NAD Skin No Rashes, Warm/Dry HEENT Atraumatic, moist oral mucosa Neck Supple Cardiovascular Normal S1, Normal S2, no m/r/g Lungs Clear to Auscultation Abdomen Normal Bowel Sounds, Soft, suprapubic tenderness present Extremities No Cyanosis, Normal Pulses, trace b/l LE's edema Neuro: Alert, Oriented X3,grossly non focal Last 24 Hours of Lab Results: Laboratory Tests 05/20 Chemistry Sodium (137 - 145 mmol/L) 138 Potassium (3.5 - 5.1 mmol/L) 4.2 Chloride (98 - 107 mmol/L) 103 Carbon Dioxide (22 - 30 mmol/L) 25 Anion Gap (5 - 16) 11 BUN (7 - 17 mg/dL) 9 Creatinine (0.5 - 1.0 mg/dL) 0.4 L Estimated GFR (>60 ml/min) > 60 BUN/Creatinine Ratio (7 - 25 %) 22.5 Glucose (65 - 99 mg/dL) 122 H Calcium (8.4 - 10.2 mg/dL) 10.1 Total Bilirubin (0.2 - 1.3 mg/dL) 0.5 AST (14 - 36 U/L) 25 ALT (9 - 52 U/L) 31 Alkaline Phosphatase (<127 U/L) 68 Total Protein (6.3 - 8.2 g/dL) 8.1 Albumin (3.5 - 5.0 g/dL) 4.8 Globulin (1.9 - 4.2 gm/dL) 3.3 Albumin/Globulin Ratio (1.1 - 2.2 %) 1.5 Hematology CBC w Diff MAN DIFF ORDERED WBC (4.8 - 10.8 /CUMM) 7.7 RBC (4.20 - 5.40 /CUMM) 5.33 Hgb (12.0 - 16.0 G/DL) 12.2 Hct (37 - 47 %) 37.7 MCV (81.0 - 99.0 FL) 70.8 L MCH (27.0 - 31.0 PG) 22.8 L MCHC (33.0 - 37.0 G/DL) 32.2 L RDW (11.5 - 14.5 %) 16.1 H Plt Count (130 - 400 /CUMM) 293 MPV (7.4 - 10.4 FL) 9.3 Segmented Neutrophils (42.2 - 75.2 %) 71 Lymphocytes (20.5 - 51.1 %) 23 Monocytes (1.7 - 9.3 %) 5 Eosinophils (0 - 5.0 %) 1 Platelet Estimate (ADEQUATE) ADEQUATE Anisocytosis 1+ Microcytic Cells 2+ Urines Urinalysis LIGHT H Urine Color (YEL,AMB,STR) STRAW Urine Clarity (CLEAR) CLEAR Urine pH (5.0 - 8.0) 6.5 Ur Specific Grubbs (1.001 - 1.035) 1.010 Urine Protein (NEG,<30 MG/DL) NEG Urine Ketones (NEG) NEG Urine Nitrite (NEG) NEG Urine Bilirubin (NEG) NEG Urine Urobilinogen (0.1 - 1.0 EU/dl) 0.2 Ur Leukocyte Esterase (NEG) SMALL H Ur Microscopic SEDIMENT EXAMINED Urine RBC (0 - 5 /HPF) 1-3 Urine WBC (0 - 2 /HPF) 3-5 H Ur Epithelial Cells (NONE,FEW) MOD H Urine Bacteria (NEG/NONE) RARE H Urine Hemoglobin (NEG) TRACE-INTACT Urine Glucose (N MG/DL) NEG Last 24 Hours of Antony Results: SPEC #: [id number] NEL: 05/20/18 STATUS: RES RECD: 05/20/[address]: Laura CRAIG,Kedar Peterson SOURCE: URINE ROUT ENTR: 05/20/[address]: Ada CRAIG,Trey Roldan SPDESC: URIN CLEAN ORDERED: URINE CULTURE COMMENT: UC ADDED AT 2152 PER PHY.HIRE Procedure Result > URINE CULTURE Preliminary 05/21/18 NO GROWTH AFTER 1 DAY Diagnostic Data Recent Imaging Findings: N/A Assessment/Plan Assessment/Plan Impression: 77-year-old female with a past medical history significant for of recurrent UTIs , HTN, HLD, GERD, s/p cystocele repair with mesh and urethral sling 3 weeks ago (05/01/18) admitted 05/20 with cystitis; doubt pyelonephritis; UC no growth (while treated with Keflex ). Of note UC on 05/13/18 + E. coli S cefazolin, TMP/SMX, I nitrofurantoin; R Cipro; it is possible while on Keflex E.coli acquired resistance to the fist generation cephalosporin; although minimal pyuria noted on the urine analysis is arguing against this. Suggestion: 1. Bladder scan q 8 h x 24 h; please call if retaining urine. 2. Cont CTX 1 gm daily x 3 d; once ready for discharge fosfomycin 3 gm po q 48 h x 2 doses; this medication needs to be called in to the patient's pharmacy before discharge , in case needs preapproval (based on patient's insurance). 3. If persistent diarrhea stool for C. diff assay. 4. Encourage po fluid intake. 5. Urology eval. Consult Acknowledgment - Thank you for your consult request.
[2018-05-21 15:31] VITALS: BP 140/65
[2018-05-21 23:01] VITALS: BP 142/80
--- NOTE | 2018-05-22 06:40 | PN- Housestaff ---
Luis August 05/22/18 0639: Subjective Follow-up For: Recurrent UTI Subjective: Pt seen and examined this am. She reports improvement of her symptoms, no dysuria is noted. No abdominal tenderness. She remains afebrile, no leukocytosis. Ucx pending. Urology saw the patient in the morning. She is breathing comfortably on room air. Review of Systems Constitutional: Reports: see HPI. Objective Last 24 Hrs of Vital Signs/I&O Vital Signs Date Time Temp Pulse Resp B/P B/P Pulse O2 O2 Flow FiO2 Mean Ox Delivery Rate 05/22 928 64 130/72 05/22 0928 64 130/72 05/22 0928 64 130/72 05/22 0647 98.0 64 20 130/72 99 Room Air 05/21 2301 98.1 74 20 142/80 95 Room Air 05/21 1600 Room Air 05/21 1531 97.8 82 20 140/65 97 Room Air Intake & Output 05/22 1600 05/22 0800 05/22 0000 Intake Total 100 Output Total 600 650 Balance -500 -650 Intake, Oral 100 Output, Urine 600 650 Patient 167 lb Weight Weight Reported by Patient Measurement Method Physical Exam General Appearance: Alert, Oriented X3, Cooperative, No Acute Distress HEENT: Atraumatic Neck: Supple Cardiovascular: Regular Rate, Normal S1, Normal S2, No Murmurs Lungs: Clear to Auscultation Abdomen: Normal Bowel Sounds, Soft, No Tenderness Neurological: Normal Speech Extremities: No Edema Current Medications: Current Medications Sig/Fletcher Start time Last Medication Dose Route Stop Time Status Admin Acetaminophen 650 MG Q6P PRN 05/20 2345 AC PO Acetaminophen 1,000 MG Q6P PRN 05/20 2345 AC IV Alprazolam 0.5 MG QPM PRN 05/21 0130 AC 05/21 PO 05/28 0129 2118 Amlodipine Besylate 5 MG DAILY 05/21 900 AC 05/22 PO 927 Aspirin Buffered 81 MG DAILY 05/21 900 AC 05/22 PO 926 Atorvastatin Calcium 10 MG 1700 05/21 1700 AC 05/21 PO 1612 Calcium 600 MG BID 05/21 900 AC 05/22 PO 926 Ceftriaxone Sodium 1,000 MG DAILY 05/21 1411 AC 05/22 IV 09 Cholecalciferol 2,000 IU DAILY 05/21 900 AC 05/22 PO 0928 Enoxaparin Sodium 40 MG DAILY 05/21 09 AC 05/22 SC 0930 Folic Acid 1 MG DAILY 05/21 09 AC 05/22 PO 0927 Lactobacillus 1 CAP DAILY 05/23 1200 CAN Acidophilus PO Lactobacillus 1 CAP 1200 05/22 1200 AC Acidophilus PO Lactobacillus 1 CAP DAILY 05/21 1000 DC 05/21 Acidophilus PO 1048 Levothyroxine Sodium 0.05 MG DAILY AC 05/21 0700 AC 05/22 PO 0545 Loratadine 10 MG DAILY 05/21 0921 AC 05/22 PO 0928 Losartan Potassium 100 MG DAILY 05/21 0200 AC 05/22 PO 0928 Magnesium Oxide 400 MG DAILY 05/21 900 AC 05/22 PO 09 Metoprolol Succinate 200 MG DAILY 05/21 900 AC 05/22 PO 927 Omeprazole 20 MG DAILY 05/21 900 AC 05/22 PO 0547 Patient Medication 1 ED ONE ONE 05/21 2000 DC 05/21 Teaching ED 05/21 2001 210 Senna 187 MG AT BEDTIME PRN 05/21 930 AC 05/21 PO 2118 Sodium Chloride 1,000 ML SEE RATE 05/20 2345 DC IV 05/22 0624 Tramadol HCl 50 MG Q6 PRN 05/21 0130 AC PO Last 24 Hrs of Lab/Antony Results Last 24 Hrs of Labs/Mics: Laboratory Tests 05/22/18 0759: Anion Gap 9, Estimated GFR > 60, BUN/Creatinine Ratio 21.7, CBC w Diff NO MAN DIFF REQ, RBC 4.94, MCV 71.6 L, MCH 23.1 L, MCHC 32.2 L, RDW 16.2 H, MPV 10.0, Gran % 63.7, Lymphocytes % 24.7, Monocytes % 7.8, Eosinophils % 3.8, Basophils % 0, Absolute Granulocytes 4.3, Absolute Lymphocytes 1.7, Absolute Monocytes 0.5, Absolute Eosinophils 0.3, Absolute Basophils 0 Assessment/Plan Assessment: 77 y/o F with PMH significant for recurrent UTIs, HTN, HLD, GERD, s/p cystocele repair with mesh and urethral sling on 05/[address] Paulino. She presents to [place] ED complaining of dysuria, increased urinary frequency, incomplete voiding, and bloating/discomfort around the bladder. She was admitted to the general medicine floor for further management of: PROBLEM LIST #Recurrent symptomatic UTI #History of hyperlipidemia #History of hypertension #History of hypothyroidism #Recurrent symptomatic UTI Patient has a recurring history of dysuria 2/2 her cystocele. She did have repair on the 05/01. Noted prior Ucx growing pseudomonas and E. coli that were treated to completion; she has been compliant with her antibiotics but still c/o symptoms consistent of UTIs. ID consult obtained, recommendations of IV ceftriaxone daily for 3 days with transition to fosfomycin. She has an appointment with Dr. Paulino next sunday. She is afebrile, with no leukocytosis. UA not incredibly impressive for present infection. -Started ceftriaxone 1g day 10/20, will dc on fosfomycin if symptoms persist. -Ucx no growth so far -ID following -F/u with Urology's recommendation #History of hyperlipidemia / #History of hypertension /#History of hypothyroidism We have continued her home dosages of: metoprolol XL, levothyroxine, ASA, amlodipine, atorvastatin. FULL CODE Reg diet DVT PPX lovenox. Problem List: 1. Recurrent UTI Pain Ratin Pain Location: n/a Pain Goal: Remain pain free Pain Plan: as indicated Tomorrow's Labs & Rationales: n/a Jerry Dunham MD 05/22/18 1329: Attending MD Review Statement Attending Statement Attending MD Statement: examined this patient, discuss w/resident/PA/TILE DESIGNER, agreed w/resident/PA/TILE DESIGNER, discussed with family, reviewed EMR data (avail), discussed with nursing, discussed with case mgmt, amended to note Attending Assessment/Plan: The patient was seen and discussed with house staff, nursing, case management and family. Appreciate ID and Urology input. Will continue 3 days of Ceftriaxone and then will receive 2 doses of Fosfomycin q48 hr as per ID. Will check with pharmacy to see if it requires precert.
[2018-05-22 06:47] VITALS: BP 130/72
--- NOTE | 2018-05-22 07:31 | Cons- Urology ---
General Information and HPI Consulting Request Date of Consult: 05/22/18 Requested By: Jerry Dunham MD Reason for Consult: Recurrent UTI Source of Information: patient, old records Exam Limitations: no limitations History of Present Illness: This patient has a long hx of recurrent UTI. On 05/01/18 she underwent cystocele repair with mesh and urethral sling. She previously failed management with a pessary. She was started on po keflex recently as an outpatient for a UTI. She was admitted thru the ER complaining of urinary freqency, dysuria, feeling of incomplete emptying and abdominal bloating. She was empirically started on IV ceftriaxone. Although her U/A was not suggestive of UTI and her urine culture is negative to date, she feels significantly improved. PVR by bladder scan was only 37 cc, indicating excellent bladder emptying. She had a CT of the abd and pelvis in 03/2018 with no significant findings which would put her at increased risk for UTI Allergies/Medications Allergies: Coded Allergies: cortisone (RASH 03/23/18) hydrocodone (ALMOST FAINTED, GI UPSET 03/23/18) methylprednisolone (HIVES 03/23/18) ciprofloxacin (From CIPRO) (MYALGIAS, STOMACH UPSET 04/30/18) Home Med List: Alprazolam 0.5 MG TABLET 1 TAB PO QPM PRN ANXIETY (Reported) Amlodipine Besylate 5 MG TABLET 1 TAB PO DAILY BP (Reported) Aspirin (Ecotrin*) 81 MG TABLET.DR 1 TAB PO DAILY HEART/BLOOD (Reported) Atorvastatin Calcium 10 MG TABLET 1 TAB PO DAILY CHOLESTEROL (Reported) Calcium (Elemental-Fr Calcarb) (Calcium) 600 MG CALCIUM (1,500 MG) TABLET 1 TAB PO BID SUPPLEMENT (Reported) Cholecalciferol (Vitamin D3) (Vitamin D) 2,000 UNIT CAPSULE 1 CAP PO DAILY SUPPLEMENT (Reported) Ciprofloxacin HCl (Cipro) 500 MG TABLET 1 TAB PO BID Urinary Infection Please take one pill tonight and then twice daily for the following days with meals. Docusate Sodium (Colace) 100 MG CAPSULE 1 CAP PO BID PRN CONSTIPATION As needed for constipation Estradiol (Estrace) 0.01 % CREAM.APPL 1 GERBER VG DAILY HRT (Reported) Folic Acid 20 MG CAPSULE 2 CAP PO DAILY SUPPLEMENT (Reported) Gluc 2KCL/Chondr/Sarabjit Hy/Hy AC (Glucosamine & Chondroitin Cap) (Unknown Strength ) CAPSULE (Unknown Dose) PO DAILY SUPPLEMENT (Reported) Lactobacillus Acidophilus (Probiotic) (Unknown Strength) CAPSULE (Unknown Dose ) PO DAILY PROBIOTIC (Reported) Levothyroxine Sodium 50 MCG TABLET 1 TAB PO DAILY THYROID (Reported) Loratadine (Claritin) 10 MG TABLET 1 TAB PO DAILY ALLERGIES (Reported) Magnesium Oxide (Magnesium) 400 MG CAPSULE 1 CAP PO DAILY SUPPLEMENT ( Reported) Metoprolol Succinate 200 MG TAB.ER.24H 1 TAB PO DAILY HEART/BP (Reported) Multiple Vitamin (Multivitamins) 1 EACH TABLET 1 TAB PO DAILY SUPPLEMENT ( Reported) Olmesartan Medoxomil (Benicar) 40 MG TABLET 1 TAB PO DAILY BP (Reported) [place]-3 Fatty Acids/Fish Oil (Cvs Fish Oil 1,200 MG Softgel) 360 MG-1,200 MG CAPSULE 1 CAP PO BID SUPPLEMENT (Reported) Omeprazole 20 MG CAPSULE.DR 1 CAP PO DAILY GI (Reported) Sennosides (Senna) 8.6 MG TABLET 2 TAB PO DAILY PRN CONSTIPATION As needed for constipation. Tramadol HCl 50 MG TABLET 1 TAB PO Q6P PRN PAIN (Reported) Current Medications: Current Medications Sig/Fletcher Start time Last Medication Dose Route Stop Time Status Admin Acetaminophen 650 MG Q6P PRN 05/20 2345 AC PO Acetaminophen 1,000 MG Q6P PRN 05/20 2345 AC IV Alprazolam 0.5 MG QPM PRN 05/21 0130 AC 05/21 PO 05/28 0129 2118 Amlodipine Besylate 5 MG DAILY 05/21 0900 AC 05/21 PO 0910 Aspirin Buffered 81 MG DAILY 05/21 0900 AC 05/21 PO 0911 Atorvastatin Calcium 10 MG 1700 05/21 1700 AC 05/21 PO 1612 Calcium 600 MG BID 05/21 0900 AC 05/21 PO 2101 Ceftriaxone Sodium 1,000 MG DAILY 05/21 1411 AC 05/21 IV 1612 Cholecalciferol 2,000 IU DAILY 05/21 0900 AC 05/21 PO 0910 Enoxaparin Sodium 40 MG DAILY 05/21 0900 AC 05/21 SC 0911 Folic Acid 1 MG DAILY 05/21 0900 AC 05/21 PO 0910 Lactobacillus 1 CAP DAILY 05/21 1000 AC 05/21 Acidophilus PO 1048 Levothyroxine Sodium 0.05 MG DAILY AC 05/21 0700 AC 05/22 PO 0545 Loratadine 10 MG DAILY 05/21 0921 AC 05/21 PO 1048 Losartan Potassium 100 MG DAILY 05/21 0200 AC 05/21 PO 0911 Magnesium Oxide 400 MG DAILY 05/21 900 AC 05/21 PO 0911 Metoprolol Succinate 200 MG DAILY 05/21 09 AC 05/21 PO 0910 Omeprazole 20 MG DAILY 05/21 900 AC 05/22 PO 0547 Patient Medication 1 ED ONE ONE 05/21 2000 DC 05/21 Teaching ED 05/21 Senna 187 MG AT BEDTIME PRN 05/21 930 AC 05/21 PO 2118 Sodium Chloride 1,000 ML SEE RATE 05/20 2345 DC IV 05/22 624 Tramadol HCl 50 MG Q6 PRN 05/21 0130 AC PO Past History Medical History Neurological: NONE EENT: NONE Cardiovascular: hypertension, hyperlipidemia Respiratory: NONE Gastrointestinal: GERD Hepatic: NONE Renal: nephrolithiasis, recurrent UTI's vaginal prolapse of bladder, ANJALI Musculoskeletal: NONE Psychiatric: NONE Endocrine: hypothyroidism Blood Disorders: NONE Cancer(s): NONE 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 spouse (Daughter) Services at Home: None Primary Language: Martiniquais Smoking Status: Never Smoked ETOH Use: denies use Illicit Drug Use: denies illicit drug use Functional Ability ADLs Independent: dressing, eating, toileting, bathing. Ambulation: independent IADLs Independent: shopping, housework, finances, food prep, telephone, transportation , medication admin. Employment History Retired? yes Exam & Diagnostic Data Vital Signs and I&O Vital Signs Date Time Temp Pulse Resp B/P B/P Pulse O2 O2 Flow FiO2 Mean Ox Delivery Rate 05/22 0647 98.0 64 20 130/72 99 Room Air 05/21 2301 98.1 74 20 142/80 95 Room Air 05/21 1600 Room Air 05/21 1531 97.8 82 20 140/65 97 Room Air 05/21 0911 80 152/84 05/21 0910 79 152/84 05/21 0910 80 152/84 Intake & Output 05/22 0000 05/21 1600 09/04 0805/21 0000 05/20 1600 Intake Total 340 Output Total 650 Balance -650 340 Intake, Oral 340 Output, Urine 650 Patient 168 lb 0 lb Weight No distress Back: no CVA tenderness Abd: soft and non tender Assessment/Plan Assessment/Plan Imp: 1. Recurrent UTI, cause unclear even after CT scan of abd and pelvis and cystoscopy 2. s/p cystocele repair and urethral sling on 05/01/18 Plan: 1. f/u final urine culture result 2. If positive discharge on appropriate po abx. If negative would discharge on a po antibiotic per ID suggestion since she did improve with abx while in hospital 3. F/u in [address] Paulino. She already has an appointment for [facility] 08/24 Consult Acknowledgment - Thank you for your consult request.
[2018-05-22 08:44] LABS: ABSOLUTE BASOPHIL COUNT 0 /CUMM (0.0-0.2); ABSOLUTE EOSINOPHIL COUNT 0.3 /CUMM (0.0-0.7); BASOPHIL % 0 % (0.0-2.0)
[2018-05-22 08:59] LABS: ABSOLUTE GRANULOCYTE CT 4.3 /CUMM (1.4-6.5); ABSOLUTE LYMPH COUNT 1.7 /CUMM (1.2-3.4); ABSOLUTE MONOCYTE COUNT 0.5 /CUMM (0.10-0.60); EOSINOPHIL % 3.8 % (0-5); GRANULOCYTE % 63.7 % (42.2-75.2); HEMATOCRIT 35.3 % (37-47); MEAN CORPUSCULAR HGB 23.1 PG (27.0-31.0); MEAN CORPUSCULAR HGB CONC 32.2 G/DL (33.0-37.0); MEAN CORPUSCULAR VOLUME 71.6 FL (81.0-99.0); PLATELET COUNT 245 /CUMM (130-400); RBC DISTRIBUTION WIDTH 16.2 % (11.5-14.5); RED BLOOD CELL CT 4.94 /CUMM (4.20-5.40); WHITE BLOOD CELL COUNT 6.8 /CUMM (4.8-10.8)
--- NOTE | 2018-05-22 09:00 | PN- Infect Dx ---
Subjective Subjective: Feeling better, no fever. Review of Systems Comments: 12 points reviewed as noted, otherwise negative. Objective Last 24 Hrs of Vital Signs/I&O Vital Signs Date Time Temp Pulse Resp B/P B/P Pulse O2 O2 Flow FiO2 Mean Ox Delivery Rate 05/22 0647 98.0 64 20 130/72 99 Room Air 05/21 2301 98.1 74 20 142/80 95 Room Air 05/21 1600 Room Air 05/21 1531 97.8 82 20 140/65 97 Room Air 05/21 0911 80 152/84 05/21 0910 79 152/84 05/21 0910 80 152/84 Intake & Output 05/22 1600 05/22 0800 05/22 0000 Intake Total 100 Output Total 600 650 Balance -500 -650 Intake, Oral 100 Output, Urine 600 650 Patient 167 lb Weight Weight Reported by Patient Measurement Method Physical Exam Other Physical Findings: General Appearance Cooperative, NAD Skin No Rashes, Warm/Dry HEENT Atraumatic, moist oral mucosa Neck Supple Cardiovascular Normal S1, Normal S2, no m/r/g Lungs Clear to Auscultation Abdomen Normal Bowel Sounds, Soft, suprapubic tenderness present Extremities No Cyanosis, Normal Pulses, trace b/l LE's edema Neuro: Alert, Oriented X3,grossly non focal Results Last 24 Hours of Lab Results: Laboratory Tests 05/22 0759 Chemistry Sodium Pending Potassium Pending Chloride Pending Carbon Dioxide Pending Anion Gap Pending BUN Pending Creatinine Pending BUN/Creatinine Ratio Pending Hematology CBC w Diff Pending WBC Pending RBC Pending Hgb Pending Hct Pending MCV Pending MCH Pending MCHC Pending RDW Pending Plt Count Pending MPV Pending Last 24 Hours of Antony Results: SPEC #: [id number] NEL: 05/20/18 STATUS: RES RECD: 05/20/[address]: Laura CRAIG,Kedar Peterson SOURCE: URINE ROUT ENTR: 05/20/[address]: Ada CRAIG,Trey Roldan SPDESC: URIN CLEAN ORDERED: URINE CULTURE COMMENT: UC ADDED AT 2152 PER PHY.HIRE Procedure Result > URINE CULTURE Preliminary 05/21/18 NO GROWTH AFTER 1 DAY Recent Imaging Studies: CT A/P IMPRESSION: Colonic diverticulosis without diverticulitis. No obstruction, free air or free fluid. Mild constipation. DICTATED BY: Ilene CRAIG,Sudarshan DATE/TIME DICTATED:03/25/181939 REMOTE INPATIENT CODER:BENIGNO DATE/TIME TRANSCRIBED:03/25/181939 CONFIDENTIAL, DO NOT COPY WITHOUT APPROPRIATE AUTHORIZATION. Assessment/Plan ID Impression: 77-year-old female with a past medical history significant for of recurrent UTIs , HTN, HLD, GERD, s/p cystocele repair with mesh and urethral sling 3 weeks ago (05/01/18) admitted 05/20 with cystitis; doubt pyelonephritis; UC from admission no growth (while treated with Keflex). Of note UC on 05/13/18 + E. coli S cefazolin, TMP/SMX, I nitrofurantoin; R Cipro; it is possible while on Keflex E.coli acquired resistance to the fist generation cephalosporin; although minimal pyuria noted on the urine analysis is arguing against this. Suggestion: 1. Of note bladder scans w/o elevated PVR; patient evaluated by urology. 2. Empiric tx for cystitis w/ CTX 1 gm daily started on admission x3 d; once ready for discharge fosfomycin 3 gm po q 48 h x 1 dose in stand by if recurrent sx. 3. Bowel regimen for constipation 4. Encourage po fluid intake. 5. F/u urology as OP.
--- NOTE | 2018-05-22 09:59 | Patient Discharge Instructions ---
Discharge Instructions General Discharge Information You were seen/treated for: Urinary Tract Infection Special Instructions: Please follow up with your PCP within 1 week to discuss this hospital admission. Please follow up with your Urologist, Dr. Paulino, for your scheduled appointment next sunday. Should symptoms persist, please take keflex as instructed. You were discharged on antibiotics. Take two a day starting tomorrow for 4 days. Acute Coronary Syndrome Inclusion Criteria At DC or during hospital stay patient has or had the following: ACS DIAGNOSIS No Discharge Core Measures Meds if any: Prescribed or Continued at Discharge Meds if any: NOT Prescribed or Continued at Discharge Congestive Heart Failure Inclusion Criteria At DC or during hospital stay patient has or had the following: CHF DIAGNOSIS No Discharge Core Measures Meds if any: Prescribed or Continued at Discharge Meds if any: NOT Prescribed or Continued at Discharge Cerebrovascular accident Inclusion Criteria At DC or during hospital stay patient has or had the following: CVA/TIA Diagnosis No Discharge Core Measures Meds if any: Prescribed or Continued at Discharge Meds if any: NOT Prescribed or Continued at Discharge Venous thromboembolism Inclusion Criteria VTE Diagnosis No VTE Type NONE VTE Confirmed by (Test) NONE Discharge Core Measures - Per Current guidelines, there needs to be overlap - treatment for the first 5 days of Warfarin therapy. - If discharged on Warfarin prior to 5 days of - overlap therapy, the patient will need to be - assessed for post discharge needs including - *Post discharge parental anticoagulation - *Warfarin and/or parental anticoagulation education - *Follow up date to check INR post discharge At least 5 days overlap therapy as Inpatient No Meds if any: Prescribed or Continued at Discharge Note: Overlap Therapy is Warfarin and Anticoagulant Meds if any: NOT Prescribed or Continued at Discharge
[2018-05-22 14:28] VITALS: BP 130/70
--- NOTE | 2018-05-22 14:59 | Discharge Summary ---
Visit Information Visit Dates Admission Date: 05/21/18 Discharge Date: 05/23/18 Hospital Course Course Attending Physician: Jerry Dunham MD Primary Care Physician: Ada CRAIG,Trey Roldan Hospital Course: 77 y/o F with PMH significant for recurrent UTIs, HTN, HLD, GERD, s/p cystocele repair with mesh and urethral sling on 05/[address] Paulino. She presented to [facility] complaining of dysuria, increased urinary frequency, incomplete voiding, and bloating/discomfort around the bladder. She was admitted to the general medicine floor for further management of: PROBLEM LIST #Recurrent symptomatic UTI #History of hyperlipidemia #History of hypertension #History of hypothyroidism #Recurrent symptomatic UTI Patient has a recurring history of dysuria 2/2 her cystocele. She did have repair on the 05/[address] Paulino. Noted prior Ucx growing pseudomonas and E. coli that were treated to completion. ID was consulted, and she was treated with IV ceftriaxone daily for 3 days with resolution of symptoms during day 1 of admission, with the plan to transition to Keflex for three days. She has an appointment with Dr. Paulino next sunday and was instructed to follow up. She remained afebrile with no leukocytosis. UA not incredibly impressive for present infection. Urine culture with no growth at the time of discharge. Urology followed the patient and agreed with the plan and ID's recommendation. #History of hyperlipidemia / #History of hypertension /#History of hypothyroidism We have continued her home dosages of: metoprolol XL, levothyroxine, ASA, amlodipine, atorvastatin. During her admission, she was a FULL CODE. She was on a regular diet. DVT PPX lovenox. Allergies: Coded Allergies: cortisone (RASH 03/23/18) hydrocodone (ALMOST FAINTED, GI UPSET 03/23/18) methylprednisolone (HIVES 03/23/18) ciprofloxacin (From CIPRO) (MYALGIAS, STOMACH UPSET 04/30/18) Disposition Summary Disposition Principal Diagnosis: Recurrent UTI Additional Diagnosis: S/p cystocele repair with mesh and urethral sling Discharge Disposition: home or self care Discharge Instructions General Discharge Information Code Status: Full Code Patient's Diet: Regular diet Patient's Activity: As tolerated Follow-Up Instructions/Appts: Please follow up with your PCP within 1 week of discharge to discuss this recent hospital admission. Please follow up with Dr. Paulino for your appointment on 05/29/18 regarding your recent procedure and this hospital admission. Please take Fosfomycin for two days should symptoms reappear. Medications at Discharge Discharge Medications: Stop taking the following medications: Alprazolam (Alprazolam) 0.5 MG TABLET ORAL Every night as needed for ANXIETY Qty = 15 Tramadol HCl (Tramadol HCl) 50 MG TABLET ORAL EVERY SIX HOURS NEEDED as needed for PAIN Qty = 14 Docusate Sodium (Colace) 100 MG CAPSULE ORAL TWICE DAILY as needed for CONSTIPATION Qty = 30 Ciprofloxacin HCl (Cipro) 500 MG TABLET ORAL TWICE DAILY Qty = 14 Continue taking these medications: Amlodipine Besylate (Amlodipine Besylate) 5 MG TABLET 1 Tablet ORAL DAILY Qty = 90 Comments: Last Taken: 05/23/18 Time: 8:30 AM Atorvastatin Calcium (Atorvastatin Calcium) 10 MG TABLET 1 Tablet ORAL DAILY Qty = 90 Comments: Last Taken: 05/23/18 Time: 4:54 PM Aspirin (Ecotrin*) 81 MG TABLET. 1 Tablet ORAL DAILY Comments: Last Taken: 05/23/18 Time: 8:29 AM Lactobacillus Acidophilus (Probiotic) (Unknown Strength) CAPSULE Unknown Dose ORAL DAILY Comments: Last Taken: 05/23/18 Time: 12:10 PM Calcium (Elemental-Fr Calcarb) (Calcium) 600 MG CALCIUM (1,500 MG) TABLET 1 Tablet ORAL TWICE DAILY Comments: Last Taken: 05/23/18 Time: 8:29 AM Cholecalciferol (Vitamin D3) (Vitamin D) 2,000 UNIT CAPSULE 1 Capsule ORAL DAILY Comments: NOT GIVEN IN HOSPITAL Estradiol (Estrace) 0.01 % CREAM.APPL 1 Application VAGINAL DAILY Comments: NOT GIVEN IN HOSPITAL Folic Acid (Folic Acid) 20 MG CAPSULE 2 Capsule ORAL DAILY Comments: Last Taken: 05/23/18 Time: 8:30 AM Gluc 2KCL/Chondr/Sarabjit Hy/Hy AC (Glucosamine & Chondroitin Cap) (Unknown Strength ) CAPSULE Unknown Dose ORAL DAILY Comments: NOT GIVEN IN HOSPITAL Levothyroxine Sodium (Levothyroxine Sodium) 50 MCG TABLET 1 Tablet ORAL DAILY Comments: Last Taken: 05/23/18 Time: 6:04 AM Loratadine (Claritin) 10 MG TABLET 1 Tablet ORAL DAILY Comments: Last Taken: 05/23/18 Time: 8:29 AM Magnesium Oxide (Magnesium) 400 MG CAPSULE 1 Capsule ORAL DAILY Comments: Last Taken: 05/23/18 Time: 8:30 AM Metoprolol Succinate (Metoprolol Succinate) 200 MG TAB.ER.24H 1 Tablet ORAL DAILY Qty = 90 Comments: Last Taken: 05/23/18 Time: 8:29 AM Multiple Vitamin (Multivitamins) 1 EACH TABLET 1 Tablet ORAL DAILY Comments: NOT GIVEN IN HOSPITAL Olmesartan Medoxomil (Benicar) 40 MG TABLET 1 Tablet ORAL DAILY Qty = 90 Comments: MEDICATION GIVEN IN HOSPITAL [place]-3 Fatty Acids/Fish Oil (Cvs Fish Oil 1,200 MG Softgel) 360 MG-1,200 MG CAPSULE 1 Capsule ORAL TWICE DAILY Comments: NOT GIVEN IN HOSPITAL Omeprazole (Omeprazole) 20 MG CAPSULE.DR 1 Capsule ORAL DAILY Comments: Last Taken: 05/23/18 Time: 8:29 AM Sennosides (Senna) 8.6 MG TABLET 2 Tablet ORAL DAILY as needed for CONSTIPATION Qty = 30 Instructions: As needed for constipation. Comments: Last Taken: 05/22/18 Time: 8:02 PM Start taking the following new medications: Cephalexin (Keflex) 500 MG CAPSULE 1 Capsule ORAL TWICE DAILY Qty = 8 No Refills Copies To: Ada CRAIG,Trey Roldan
[2018-05-22] MEDS ORDERED: MONUROL3 G1 PO (17:08)
[2018-05-22 22:31] VITALS: BP 124/60
[2018-05-23 05:37] VITALS: BP 138/74
--- NOTE | 2018-05-23 07:03 | PN- Housestaff ---
See Addendum Subjective Follow-up For: UTI Subjective: Pt seen and examined today. She has no acute complains, no dysuria or hematuria. Was straight cath'd by Dr. Paulino yesterday, Ucx was sent. She is afebrile, on bowel regimen. No BM yet. She denies abdominal pain or distension. + Flatus. Stable VSS. Review of Systems Constitutional: Reports: see HPI. Objective Last 24 Hrs of Vital Signs/I&O Vital Signs Date Time Temp Pulse Resp B/P B/P Pulse O2 O2 Flow FiO2 Mean Ox Delivery Rate 05/23 537 98.0 75 20 138/74 95 05/22 2231 98.3 78 20 124/60 97 Room Air 05/22 1600 Room Air 05/22 1428 98.1 65 20 130/70 100 Room Air 05/22 0928 64 130/72 05/22 0928 64 130/72 05/22 0928 64 130/72 Intake & Output 05/23 0800 05/23 0000 05/22 1600 Intake Total 600 1730 Output Total 250 1100 Balance 350 630 Intake, IV 30 Intake, Oral 600 1700 Number 0 Bowel Movements Output, Urine 250 1100 Patient 171 lb Weight Physical Exam General Appearance: Alert, Oriented X3, Cooperative, No Acute Distress Skin: No Rashes Neck: Supple Cardiovascular: Regular Rate, Normal S1, Normal S2, No Murmurs Lungs: Clear to Auscultation Abdomen: Normal Bowel Sounds, Soft, No Tenderness Neurological: Normal Speech Extremities: No Edema Current Medications: Current Medications Sig/Fletcher Start time Last Medication Dose Route Stop Time Status Admin Acetaminophen 650 MG Q6P PRN 05/20 2345 AC PO Acetaminophen 1,000 MG Q6P PRN 05/20 2345 AC IV Alprazolam 0.5 MG QPM PRN 05/21 0130 AC 05/21 PO 05/28 0129 2118 Amlodipine Besylate 5 MG DAILY 05/21 900 AC 05/22 PO 09 Aspirin Buffered 81 MG DAILY 05/21 900 AC 05/22 PO 09 Atorvastatin Calcium 10 MG 1700 05/21 1700 AC 05/22 PO 1616 Calcium 600 MG BID 05/21 900 AC 05/22 PO 212 Ceftriaxone Sodium 1,000 MG DAILY 05/21 1411 AC 05/22 IV 09 Cholecalciferol 2,000 IU DAILY 05/21 900 AC 05/22 PO 0928 Enoxaparin Sodium 40 MG DAILY 05/21 09 AC 05/22 SC 0930 Folic Acid 1 MG DAILY 05/21 09 AC 05/22 PO 0927 Lactobacillus 1 CAP DAILY 05/23 1200 CAN Acidophilus PO Lactobacillus 1 CAP 1200 05/22 1200 AC 05/22 Acidophilus PO 1154 Lactobacillus 1 CAP DAILY 05/21 1000 DC 05/21 Acidophilus PO 1048 Levothyroxine Sodium 0.05 MG DAILY AC 05/21 0700 AC 05/23 PO 0604 Loratadine 10 MG DAILY 05/21 09 AC 05/22 PO 0928 Losartan Potassium 100 MG DAILY 05/21 0200 AC 05/22 PO 09 Magnesium Oxide 400 MG DAILY 05/21 900 AC 05/22 PO 927 Melatonin 3 MG AT BEDTIME 05/22 2100 AC 05/22 PO 2129 Metoprolol Succinate 200 MG DAILY 05/21 900 AC 05/22 PO 0928 Omeprazole 20 MG DAILY 05/21 900 AC 05/22 PO 0547 Patient Medication 1 ED ONE ONE 05/22 1200 ME 05/22 Teaching ED 05/22 1201 1939 Polyethylene Glycol 17 GM DAILY 05/23 900 AC PO Polyethylene Glycol 17 GM ONCE ONE 05/22 1630 DC PO 05/22 163 Senna 187 MG AT BEDTIME PRN 05/21 0930 DC 05/21 PO 2118 Senna/Docusate Sodium 2 TAB QPM PRN 05/22 1630 AC 05/22 PO 2002 Tramadol HCl 50 MG Q6 PRN 05/21 0130 AC PO Last 24 Hrs of Lab/Antony Results Last 24 Hrs of Labs/Mics: Laboratory Tests 05/22/18 0759: Anion Gap 9, Estimated GFR > 60, BUN/Creatinine Ratio 21.7, CBC w Diff NO MAN DIFF REQ, RBC 4.94, MCV 71.6 L, MCH 23.1 L, MCHC 32.2 L, RDW 16.2 H, MPV 10.0, Gran % 63.7, Lymphocytes % 24.7, Monocytes % 7.8, Eosinophils % 3.8, Basophils % 0, Absolute Granulocytes 4.3, Absolute Lymphocytes 1.7, Absolute Monocytes 0.5, Absolute Eosinophils 0.3, Absolute Basophils 0 Microbiology 05/22 1727 URINE ROUT: Urine Culture - RECD Assessment/Plan Assessment: 77 y/o F with PMH significant for recurrent UTIs, HTN, HLD, GERD, s/p cystocele repair with mesh and urethral sling on 05/[address] Paulino. She presents to [facility] ED complaining of dysuria, increased urinary frequency, incomplete voiding, and bloating/discomfort around the bladder. She was admitted to the general medicine floor for further management of: PROBLEM LIST #Recurrent symptomatic UTI #History of hyperlipidemia #History of hypertension #History of hypothyroidism #Recurrent symptomatic UTI Patient has a recurring history of dysuria 2/2 her cystocele. She did have repair on the 05/01. Noted prior Ucx growing pseudomonas and E. coli that were treated to completion; she has been compliant with her antibiotics but still c/o symptoms consistent of UTIs. ID consult obtained, recommendations of IV ceftriaxone daily for 3 days with transition to fosfomycin. She has an appointment with Dr. Paulino next sunday. She is afebrile, with no leukocytosis. UA not incredibly impressive for present infection. Noted increased residuals on bladder scan, was straight cath'd in the AM. -Completed 3 days of IV ceftriaxone, will dc on fosfomycin if symptoms persist. -Ucx no growth so far, retaken yesterday -ID following -F/u with Urology's recommendation. Has follow up appointment with Dr. Paulino on 05/27. #History of hyperlipidemia / #History of hypertension /#History of hypothyroidism We have continued her home dosages of: metoprolol XL, levothyroxine, ASA, amlodipine, atorvastatin. FULL CODE Reg diet DVT PPX lovenox. Problem List: 1. Recurrent UTI Pain Ratin Pain Location: n/a Pain Goal: Remain pain free Pain Plan: as indicated Tomorrow's Labs & Rationales: n/a
--- NOTE | 2018-05-23 08:06 | PN- Infect Dx ---
Subjective Subjective: No new c/o; afebrile. Review of Systems Comments: 12 points reviewed as noted, otherwise negative. Objective Last 24 Hrs of Vital Signs/I&O Vital Signs Date Time Temp Pulse Resp B/P B/P Pulse O2 O2 Flow FiO2 Mean Ox Delivery Rate 05/23 0537 98.0 75 20 138/74 95 05/22 2231 98.3 78 20 124/60 97 Room Air 05/22 1600 Room Air 05/22 1428 98.1 65 20 130/70 100 Room Air 05/22 0928 64 130/72 05/22 0928 64 130/72 05/22 0928 64 130/72 Intake & Output 05/23 1600 05/23 0800 05/23 0000 Intake Total 600 Output Total 250 Balance 350 Intake, Oral 600 Output, Urine 250 Patient 171 lb Weight Physical Exam Other Physical Findings: General Appearance: Alert, Oriented X3, Cooperative, No Acute Distress Skin: No Rashes Neck: Supple Cardiovascular: Regular Rate, Normal S1, Normal S2, No Murmurs Lungs: Clear to Auscultation Abdomen: Normal Bowel Sounds, Soft, No Tenderness Neurological: Normal Speech Extremities: No Edema Results Last 24 Hours of Lab Results: SPEC #: [id number] NEL: 05/22/18 STATUS: RECD RECD: 05/22/[address]: Lester Garcia MD, [facility] SOURCE: URINE ROUT ENTR: 05/22/[address]: Ada CRAIG,Trey Roldan SPDESC: URINE STRA Shai CRAIG, Miguelito Dunham MD,Jerry ORDERED: URINE CULTURE COMMENT: TRIO Procedure Result URINE CULTURE PENDING Last 24 Hours of Antony Results: reviewed Recent Imaging Studies: reviewed Assessment/Plan ID Impression: 77-year-old female with a past medical history significant for of recurrent UTIs , HTN, HLD, GERD, s/p cystocele repair with mesh and urethral sling 3 weeks ago (05/01/18) admitted 05/20 with cystitis; doubt pyelonephritis; UC from admission no growth (while treated with Keflex). Of note UC on 05/13/18 + E. coli S cefazolin, TMP/SMX, I nitrofurantoin; R Cipro; it is possible while on Keflex E.coli acquired resistance to the fist generation cephalosporin; although minimal pyuria noted on the urine analysis is arguing against this. Of note UC 9/ NGTD; repeat UC 05/22 pnd (no UA available). Urinary retention; requiring SC past 2 d. Suggestion: 1. F/U urology; pt w/ intermittent urinary retention. Observe off abx starting tomorrow. 2. Empiric tx for cystitis w/ CTX 1 gm daily D#3/3; fosfomycin 3 gm po q 48 h x 1 dose in stand by if recurrent symptoms.
[2018-05-23 15:59] VITALS: BP 140/80
[2018-05-23] MEDS ORDERED: KEFLEX500 M1 PO (16:17)
== END 2018-05-23 18:30 | DRG 690 ==
LOC: ERH 20:24 → 2NA 23:30 → ERHI 23:30 → ENRESERV 05-21 00:45 → 2NA 05-21 01:03
PROVIDERS: Emergency Medicine; Internal Medicine
DX: N39.0 Urinary tract infection, site not specified (principal); B96.5 Pseudomonas (aeruginosa) (mallei) (pseudomallei) as the cause of diseases classified elsewhere; E66.9 Obesity, unspecified; Z68.31 Body mass index [BMI] 31.0-31.9, adult; E03.9 Hypothyroidism, unspecified; K21.9 Gastro-esophageal reflux disease without esophagitis; I10 Essential (primary) hypertension; E78.5 Hyperlipidemia, unspecified; Z88.1 Allergy status to other antibiotic agents; Z88.5 Allergy status to narcotic agent; Z88.8 Allergy status to other drugs, medicaments and biological substances; Z88.9 Allergy status to unspecified drugs, medicaments and biological substances; Z90.710 Acquired absence of both cervix and uterus; Z79.82 Long term (current) use of aspirin; Z79.810 Long term (current) use of selective estrogen receptor modulators (SERMs)
CPT/HCPCS: 2NAP; 6030; 81001; 82436; 87040; 87086; 96374; G0378; J0131; J0696; J1650; J2405; J3490; J7508